=== PATIENT | female | born 1990 | race Caucasian/White ===

== ENCOUNTER 2019-10-04 17:08 | Emergency (ER) | payer SELFPAY ==
[2019-10-04 17:12] VITALS: BP 158/79; PULSE 81; RESP 12; TEMP 36.7; O2SAT 98
[2019-10-04 18:50] LABS: Bilirubin Negative (Negative); Blood Trace-intact (Negative); Clarity Clear (Clear); Glucose Negative (Negative); Ketones Negative (Negative); Leukocyte Esterase Negative (Negative); Nitrite Negative (Negative); Urobilinogen 0.2 EU/dL (Up TO 0.2)
[2019-10-04 19:03] LABS: Bacteria Negative HPF (Negative); Epithelial Cells Few HPF (Negative); Other Cells Negative (Negative); RBC Negative HPF (0-2); WBC Negative HPF (0-5)
[2019-10-04 19:04] LABS: C & S Indicated? No; Casts Negative LPF (Negative); Crystals Negative HPF (Negative); Mucus Negative (Negative)
[2019-10-04 19:27] LABS: Abs Immature Grans 0.05 k/cumm (0.0-0.09); Absolute Basophil Count 0.02 k/cumm (0.0-0.2); Absolute Eosinophil Count 0.28 k/cumm (0.0-0.7); Absolute Lymphocyte Count 2.65 k/cumm (1.2-3.4); Absolute Monocyte Count 0.73 k/cumm (0.11-0.7); Absolute Neutrophil Count 5.69 k/cumm (1.2-6.7); Basophils % 0.2; HCT 42.4 % (36.0-46.0); HGB 14.7 g/dL (12.0-15.5); Immature Grans % 0.5 %; Lymphocytes % 28.1; Mean Corp. HGB Concentration 34.7 g/dL (32.0-36.0); Mean Corpuscular Hemoglobin 30.4 pg (27.0-33.0); Mean Corpuscular Volume 87.8 fL (80-95); Mean Platelet Volume 9.1 fL (8.0-11.0); Monocytes % 7.7; Neutrophils % 60.5; Platelet Count 348 x1000/uL (130-400); RBC 4.83 m/cumm (4.00-5.20); RBC Distribution Width 12.2 % (11.7-14.6); White Blood Cell Count 9.42 k/cumm (4.4-10.8)
[2019-10-04 19:32] LABS: ALT 74 U/L (14-59); AST 40 U/L (15-37); Albumin 4.2 g/dL (3.4-5.0); Alkaline Phosphatase 77 U/L (46-116); BUN 11 mg/dL (7-18); Bilirubin, Total 0.4 mg/dL (0.2-1.0); Chloride 100 mmol/L (98-107); Glucose 91 mg/dL (74-106); Potassium 3.7 mmol/L (3.5-5.1); Sodium 137 mmol/L (136-145); Total Protein 7.5 g/dL (6.4-8.2)
[2019-10-04 20:38] LABS: Carboxyhemoglobin 1.5 %
[2019-10-04] MEDS: Meclizine 25 MG TAB PO (21:06)
[2019-10-04] MEDS: Normal Saline 1,000 ML 1000 ML IV (21:06)
[2019-10-04 21:40] VITALS: BP 122/76; PULSE 69; RESP 18; TEMP 36.6; O2SAT 98
--- NOTE | 2019-10-04 23:05 | W.ED.GENAD ---
Discharge Plan Disposition Patient Disposition: HOME Condition: Improving Discharge Details Chief Complaint: GenMedical Clinical Impression: Viral illness, Vertigo Primary Care Provider: Dorinda Kaminski ED Provider: Estee No Home Meds and New Rx's Prescriptions: New meclizine 25 mg tablet 25 mg PO TID PRN (Reason: dizziness) Qty: 10 RF: 0 ondansetron HCl [Zofran] 4 mg tablet 4 mg PO Q8H PRN (Reason: nausea and vomiting) Qty: 10 RF: 0 No Action fluoxetine [Prozac] 40 mg Capsule 40 mg PO DAILY RF: 0 lamotrigine 200 mg Tablet 200 mg PO DAILY RF: 0 buspirone 30 mg Tablet 30 mg PO DAILY RF: 0 Vyvanse 20 mg Capsule 20 mg PO DAILY RF: 0 Discharge Instructions Instructions: Vertigo (ED), Viral Syndrome (ED) Additional Instructions: Drink plenty of fluids. Use nausea medication as prescribed. Use meclizine as prescribed for dizziness. If not improving in the next 24 to 48 hours have prompt reevaluation as discussed for more advanced imaging studies as well as more in-depth medical evaluation. Rest activities as tolerated. Follow-up with PCP for recheck. Return for any alarming symptoms, worsening or concerns sooner as discussed Discharge Data Discharge Date/Time-TO BE ENTERED AT DEPARTURE: 10/04/19 23:20 Medical Decision Making This is a 29-year-old patient who is quite pleasant presenting to the emergency room for 4 days of nausea associated with dizziness. Patient reports onset of symptoms while traveling. Patient reports mild blurred vision feeling more comfortable with her glasses off. Patient reports dizziness is somewhat improved when not wearing her glasses. Patient reports recently traveling to [place], staying in a hotel for [employer]. Patient reports onset of symptoms after 2 days in the hotel. Friend with whom she shares the hotel room has similar symptoms which persist. She also did seek medical attention, was seen at [facility], diagnosed with vertigo with follow-up with PCP. Patient reports mild night sweats and chills but no measured fever. She has been able to eat and drink without difficulty. Denies abdominal pain, vomiting or bowel change. Denies urinary urgency or frequency. Patient denies any history of similar. Patient reports her dizziness as somewhat worse when changing position but no worse with position from a seated to a laying position or vice versa, somewhat worse when walking. Denies any worsening with position change of her head. Patient denies any visual field loss. Patient has benign neurologic exam at this time. IV fluids provided and labs obtained. EKG reveals sinus rhythm with a rate of 65. RSR in V1 which is nonspecific. No previous comparison. This was reviewed with my attending Dr. Wright. Patient does report dizziness improved after IV fluids. Hints exam with assistance of Dr. Llanos reveals no concern for central etiology of her symptoms. Labs reveal no acute abnormality. Carboxyhemoglobin normal. Patient's urinalysis not concerning for an acute urinary tract infection. Patient provided meclizine. Patient feels significantly improved at this time. She denies any persistent dizziness, has a normal gait at this time. Discussed more advanced imaging studies such as CT to rule out intracranial pathology and lumbar puncture. Patient declines more advanced imaging or lumbar puncture at this time. She would prefer discharge home with use of Zofran as well as meclizine and if not improving in the next 24 hours will return. Alarming symptoms and precautions discussed. Patient reports her understanding. 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 Patient reports her understanding. Encouraged prompt recheck with PCP. The patient was stable and requested discharge. Prior to discharge, my usual and customary return precautions were reviewed with the patient - this included follow-up instructions and reasons to return to the Emergency Department if conditions worsens, does not improve as expected, or other new concerns arise. HPI General Date/Time Provider Initiated Documentation: 10/04/19 17:14. 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 Patient reports 2 days after arriving in [place] she began to have onset of dizziness associated with nausea. Patient denies fevers but admits to mild chills. She does report night sweats for the last 2 nights. Patient reports symptoms persisted. She did return home yesterday. Patient denies associated chest pain, difficulty breathing with shortness of breath or wheezing. Patient reports dizziness is persistent. She does report mild blurred vision. Denies associated headache. Denies any injury or trauma while traveling. Patient denies any ear pain. Denies any nasal congestion or sore throat. Patient reports she has been able to eat and drink but has had decrease in appetite. Denies abdominal pain associated. Patient reports her friend with whom she traveled, shared a row in the plane with as well as shared hotel room with has very similar symptoms and has been evaluated at both [facility] as well as her PCP with diagnosis of vertigo. Patient denies any numbness, tingling or weakness of extremities. Patient describes her dizziness as spinning. Patient denies a positional component however she does report symptoms are worse when wearing glasses and when changing position for example from a seated to a sitting to laying. Denies worsening with movement of her head. No history of similar. Denies urinary symptoms or bowel changes. Denies use of drugs or alcohol while traveling. Related Data Home Medications Medication Instructions Recorded Confirmed buspirone 30 mg PO DAILY 10/04/19 10/04/19 fluoxetine [Prozac] 40 mg PO DAILY 10/04/19 10/04/19 lamotrigine 200 mg PO DAILY 10/04/19 10/04/19 lisdexamfetamine [Vyvanse] 20 mg PO DAILY 10/04/19 10/04/19 meclizine 25 mg PO TID PRN #10 tab 10/04/19 ondansetron HCl [Zofran] 4 mg PO Q8H PRN #10 tab 10/04/19 Previous Rx's Medication Instructions Recorded meclizine 25 mg PO TID PRN #10 tab 10/04/19 ondansetron HCl [Zofran] 4 mg PO Q8H PRN #10 tab 10/04/19 Allergies Allergy/AdvReac Type Severity Reaction Status Date / Time meloxicam Allergy Unverified 10/04/19 17:16 acetaminophen [From Percocet] AdvReac Unverified 10/04/19 17:16 oxycodone [From Percocet] AdvReac Unverified 10/04/19 17:16 General Stated Complaint: GenMedical YESENIA: 3 Review of Systems All systems reviewed & are unremarkable except as noted in HPI and below Constitutional Constitutional: Reports chills, Denies fatigue, Denies fever(s), Denies headache(s), Denies malaise and Denies weakness ENT Ears, Nose, Mouth, and Throat: Reports vertigo, Reports dizziness, Denies headache(s), Denies post nasal drip, Denies sinus pain, Denies sinus pressure and Denies sore throat Cardiovascular Cardiovascular: Denies chest pain, Denies chest pain at rest, Denies syncope, Denies rapid heart rate, Denies edema, Denies radiating jaw, neck or arm pain, Denies palpitations, Denies dyspnea and Denies dyspnea on exertion Respiratory Respiratory: Denies cough, Denies dyspnea and Denies dyspnea on exertion Gastrointestinal Gastrointestinal: Denies abdominal pain, Denies diarrhea, Reports nausea and Denies vomiting Genitourinary Genitourinary: Denies dysuria, Denies flank pain and Denies urinary urgency Musculoskeletal Musculoskeletal: Denies numbness and Denies tingling Neurologic Neurologic: Denies abnormal movements, Denies abnormal speech, Reports vertigo, Reports dizziness, Denies syncope, Denies headache(s), Denies lack of coordination, Denies numbness, Denies tingling, Denies paresthesias and Denies weakness Endocrine Endocrine: Denies fatigue and Denies palpitations [facility] Social History Smoking/Tobacco Use Status: Current every day Tobacco Type: cigarettes Alcohol Intake: current Alcohol Intake frequency: a few times a month Drug use: Never Substance use type: does not use Do you feel safe at home: Yes Do you feel safe in your relationship?: Yes Exam Narrative Exam Narrative: CONST: Healthy appearing patient, in no acute distress. Well hydrated. Alert and oriented. HENMT: Head nomocephalic, normal to inspection. Atraumatic. Hearing grossly normal. TMs appear normal bilaterally, no pharyngeal erythema. EYES: General normal appearance. Alignment normal. Eyelids normal. Conjunctiva normal. No nystagmus. NECK: Normal visual inspection. FROM. Trachea midline. No Midline tenderness. No cervical lymphadenopathy. CHEST: Normal insepection of the chest. RESP: Normal respiratory effort. Speaking full sentences. No cough. No audible wheezing. No retractions. CARDIO: No JVD. No murmurs, regular rate and rhythm MUSCULOSKELETAL: Normal Gait. FROM of all extremities. Strength intact in extremities upper and lower. Equal bilaterally. SKIN: Normal. Dry. No rashes. NEURO: Alert and awake. Speech clear. Alert and oriented x 3. Speech is clear. Cranial nerves intact as tested III - XI. Normal [id number] test. No pronator drift. Normal heel-jacobsen test. No Nystagmus. Gait normal. Strength intact in all extremities. Sensation intact in all extremities. PSYCH: Normal affect. Cooperative. Course Vital Signs Vital signs: Vital Signs Temperature 36.7 C 10/04/19 17:12 Pulse 81 10/04/19 17:12 Respiratory Rate 12 10/04/19 17:12 Blood Pressure 158/79 H 10/04/19 17:12 Pulse Oximetry 98 10/04/19 17:12 Temperature 36.6 C 10/04/19 21:40 Temperature Source Temporal Artery Scan 10/04/19 21:40 Pulse 69 10/04/19 21:40 Respiratory Rate 18 10/04/19 21:40 Respiratory Effort Non-Labored 10/04/19 19:36 Respiratory Depth Normal 10/04/19 19:36 Respiratory Pattern Normal 10/04/19 19:36 Blood Pressure 122/76 10/04/19 21:40 Blood Pressure Mean 91 10/04/19 21:40 Blood Pressure Position Sitting 10/04/19 17:12 Pulse Oximetry 98 10/04/19 21:40 Oxygen Delivery Method Room Air 10/04/19 21:40 Oxygen Flow Rate 0 10/04/19 21:40 Pain Level 2 10/04/19 17:12 Lab/Test Results Lab/Test Results: Laboratory Tests Range/Units 10/04/19 10/04/19 10/04/19 18:40 19:13 19:15 WBC (4.4-10.8) k/cumm 9.42 RBC (4.00-5.20) m/cumm 4.83 Hgb (12.0-15.5) g/dL 14.7 Hct (36.0-46.0) % 42.4 MCV (80-95) fL 87.8 MCH (27.0-33.0) pg 30.4 MCHC (32.0-36.0) g/dL 34.7 RDW (11.7-14.6) % 12.2 Plt Count (130-400) x1000/uL 348 MPV (8.0-11.0) fL 9.1 Immature Gran % % 0.5 Neutrophils % 60.5 Lymphocytes % 28.1 Monocytes % 7.7 Eosinophils % 3.0 Basophils % 0.2 Absolute Neutrophils (1.2-6.7) k/cumm 5.69 Absolute Lymphocytes (1.2-3.4) k/cumm 2.65 Absolute Monocytes (0.11-0.7) k/cumm 0.73 H Absolute Eosinophils (0.0-0.7) k/cumm 0.28 Absolute Basophils (0.0-0.2) k/cumm 0.02 Carboxyhemoglobin % % Sodium (136-145) mmol/L 137 Potassium (3.5-5.1) mmol/L 3.7 Chloride (98-107) mmol/L 100 Carbon Dioxide (21.0-32.0) mmol/L 28.0 Anion Gap (3-11) mmol/L 9.0 BUN (7-18) mg/dL 11 Creatinine (0.55-1.02) mg/dL 0.70 Estimated GFR/1.73 m2 (mL/min/1.73m2) >= 60.00 Glucose (74-106) mg/dL 91 Calcium (8.5-10.1) mg/dL 9.0 Total Bilirubin (0.2-1.0) mg/dL 0.4 AST (15-37) U/L 40 H ALT (14-59) U/L 74 H Alkaline Phosphatase (46-116) U/L 77 Total Protein (6.4-8.2) g/dL 7.5 Albumin (3.4-5.0) g/dL 4.2 Urine Color (Yellow) Yellow Urine Clarity (Clear) Clear Urine pH (5-8) 6.0 Ur Specific Welch (1.005-1.025) 1.010 Urine Protein (Negative) mg/dL Negative Urine Ketones (Negative) mg/dL Negative Urine Blood (Negative) Trace-intact H Urine Nitrite (Negative) Negative Urine Bilirubin (Negative) Negative Urine Urobilinogen (Up TO 0.2) EU/dL 0.2 Ur Leukocyte Esterase (Negative) Negative Urine RBC (0-2) HPF Negative Urine WBC (0-5) HPF Negative Ur Epithelial Cells (Negative) HPF Few Urine Crystals (Negative) HPF Negative Urine Bacteria (Negative) HPF Negative Urine Casts (Negative) LPF Negative Urine Mucus (Negative) Negative Urine Other (Negative) Negative Ur Culture Indicated? No Urine Glucose (Negative) mg/dL Negative Range/Units 10/04/19 20:30 WBC (4.4-10.8) k/cumm RBC (4.00-5.20) m/cumm Hgb (12.0-15.5) g/dL Hct (36.0-46.0) % MCV (80-95) fL MCH (27.0-33.0) pg MCHC (32.0-36.0) g/dL RDW (11.7-14.6) % Plt Count (130-400) x1000/uL MPV (8.0-11.0) fL Immature Gran % % Neutrophils % Lymphocytes % Monocytes % Eosinophils % Basophils % Absolute Neutrophils (1.2-6.7) k/cumm Absolute Lymphocytes (1.2-3.4) k/cumm Absolute Monocytes (0.11-0.7) k/cumm Absolute Eosinophils (0.0-0.7) k/cumm Absolute Basophils (0.0-0.2) k/cumm Carboxyhemoglobin % % 1.5 Sodium (136-145) mmol/L Potassium (3.5-5.1) mmol/L Chloride (98-107) mmol/L Carbon Dioxide (21.0-32.0) mmol/L Anion Gap (3-11) mmol/L BUN (7-18) mg/dL Creatinine (0.55-1.02) mg/dL Estimated GFR/1.73 m2 (mL/min/1.73m2) Glucose (74-106) mg/dL Calcium (8.5-10.1) mg/dL Total Bilirubin (0.2-1.0) mg/dL AST (15-37) U/L ALT (14-59) U/L Alkaline Phosphatase (46-116) U/L Total Protein (6.4-8.2) g/dL Albumin (3.4-5.0) g/dL Urine Color (Yellow) Urine Clarity (Clear) Urine pH (5-8) Ur Specific Welch (1.005-1.025) Urine Protein (Negative) mg/dL Urine Ketones (Negative) mg/dL Urine Blood (Negative) Urine Nitrite (Negative) Urine Bilirubin (Negative) Urine Urobilinogen (Up TO 0.2) EU/dL Ur Leukocyte Esterase (Negative) Urine RBC (0-2) HPF Urine WBC (0-5) HPF Ur Epithelial Cells (Negative) HPF Urine Crystals (Negative) HPF Urine Bacteria (Negative) HPF Urine Casts (Negative) LPF Urine Mucus (Negative) Urine Other (Negative) Ur Culture Indicated? Urine Glucose (Negative) mg/dL POC- Test(urine) Negative
[2019-10-04 23:18] VITALS: BP 127/89; PULSE 71; RESP 16; O2SAT 99
== END 2019-10-04 23:20 | disposition home or self-care (01) ==
PROVIDERS: Student in an Organized Health Care Education/Training Program; Emergency Provider Physician Assistant; PCP Student in an Organized Health Care Education/Training Program
DX: R11.0 Nausea (principal); R42 Dizziness and giddiness; R68.83 Chills (without fever); B34.9 Viral infection, unspecified; F17.210 Nicotine dependence, cigarettes, uncomplicated
CPT/HCPCS: 36415; 80053; 81025; 82375; 93005; 96360; 99285; 81003; 81015; 85025; 93010; 99284

== ENCOUNTER 2019-11-24 05:51 | Emergency (ER) | payer SELFPAY ==
[2019-11-24 05:55] VITALS: BP 121/78; PULSE 79; RESP 16; TEMP 36.5; O2SAT 100
--- NOTE | 2019-11-24 06:41 | ED.GENADUL_ITS ---
Discharge Plan Disposition Patient Disposition: HOME Condition: Stable Discharge Details Chief Complaint: GenMedical Clinical Impression: Migraine Primary Care Provider: Dorinda Kaminski ED Provider: Jt Orellana Home Meds and New Rx's Prescriptions: Continued fluoxetine [Prozac] 40 mg Capsule 40 mg PO DAILY RF: 0 lamotrigine 200 mg Tablet 200 mg PO DAILY RF: 0 propranolol 60 mg Capsule,Extended Release 24 Hr 60 mg PO QHS RF: 0 buspirone 15 mg Tablet 15 mg PO DAILY RF: 0 atomoxetine [Strattera] 10 mg Capsule 40 mg PO QAM RF: 0 Discharge Instructions Instructions: Migraine Headache (ED) Additional Instructions: follow up with your primary care provider at the [facility] and discuss seeing a neurologist if you have high fevers, severe worsening pain or persistent vomit return to the emergency department you can take 1000mg tylenol and 600mg ibuprofen every 6 hours for pain as needed Discharge Data Discharge Date/Time-TO BE ENTERED AT DEPARTURE: 11/24/19 09:21 Medical Decision Making <Evaristo Ambriz MD - Last Filed: 11/27/19 23:04> Not sure what to make of her symptoms which include headache (which she describes as pain behind her eyes either bilateral and pulsating or unilateral and searing), hot flashes, and tingling. She is being worked up at the [facility]. They have tried different medications and more recently they have started her on propranolol to see if that would help with the headaches. This headache apparently is a little more intense and definitely prolonged compared to typical. In some ways seems cluster-like in nature, however, there is no autonomic symptoms such as tearing or nasal discharge. Nevertheless it is worth trying some oxygen. Oxygen has not helped. In further discussion she has not had any imaging of her head done as part of this work-up. She has a normal neurologic exam. Seems unlikely but I think it is reasonable to obtain a noncontrast head CT to be sure there is no obvious abnormalities. We will go ahead and start an IV and give fluids, Toradol, Reglan, Benadryl to see if any improvement in her pain. <Jt Orellana MD - Last Filed: 11/24/19 09:08> Patient's head ct negative per dr. denney. She has no focal neuro deficits and CN II-XII are intact. She still has some pain in left head but has improved. Her symptoms seem most typical of either cluster headache or migraine. [facility] Will have her f/u with her pcp and also advised to see neurology and return precautions given Differential Diagnosis Differential Diagnosis: tension headache, cluster headache Imaging Data Radiologic Study: Attestation: I personally reviewed and interpreted this imaging study as follows: Imaging: CT Scan Radiologist's impression: per dr. denney no acute findings HPI <Evaristo Ambriz MD - Last Filed: 11/27/19 23:04> General Mode of arrival: ambulatory . Date/Time Provider Initiated Documentation: 11/24/19 06:39 . Limitations to Documentation: no limitations . Information obtained by: patient and RN notes reviewed . HPI Narrative: Patient presents to ED with stabbing pain behind and into the left eye which woke her up at 2 AM. She has been having pain similar to this on and off for a couple months. She also has migraine type headaches with pulsation and pain behind both eyes. This discomfort she is having now is only left-sided and not pulsating and more severe. She has had associated hot flashes and tingling on and off in her hands. She has some nausea and a little bit of dry heaves. [facility] to sort all this out. She came in this morning because the pain behind the left eye is most severe and did not respond to ibuprofen. She has no tearing or nasal discharge. She has a little bit of dizziness. She has no fever or URI symptoms. She has no other neurologic symptoms such as vision change, gait disturbance, weakness. The numbness and tingling is only ever in the hands usually the right. Related Data Home Medications Medication Instructions Recorded Confirmed fluoxetine [Prozac] 40 mg PO DAILY 10/04/19 11/24/19 lamotrigine 200 mg PO DAILY 10/04/19 11/24/19 atomoxetine [Strattera] 40 mg PO QAM 11/24/19 11/24/19 buspirone 15 mg PO DAILY 11/24/19 11/24/19 propranolol 60 mg PO QHS 11/24/19 11/24/19 Allergies Allergy/AdvReac Type Severity Reaction Status Date / Time meloxicam Allergy Unverified 11/24/19 08:03 acetaminophen [From Percocet] AdvReac Unverified 11/24/19 08:03 oxycodone [From Percocet] AdvReac Unverified 11/24/19 08:03 General Stated Complaint: GenMedical YESENIA: 3 Review of Systems <Evaristo Ambriz MD - Last Filed: 11/27/19 23:04> Narrative: As documented in HPI otherwise negative as below. Const: no fever, chills, weakness Resp: no cough, SOB, pleuritic pain CV: no CP, diaphoresis, edema, syncope GI: nausea; no abdominal pain, vomiting, diarrhea Neuro: headache, numbness in hands; no focal weakness, confusion PFSH <Evaristo Ambriz MD - Last Filed: 11/27/19 23:04> Medical History ADHD (Chronic) Bipolar disorder (Chronic) Surgical History S/P laparoscopy (Inactive) Social History Smoking/Tobacco Use Status: Former Tobacco Use Quit Date: 09/27/19 Alcohol Intake: current Alcohol Intake frequency: a few times a month Drug use: Occasionally Substance use type: marijuana Do you feel safe at home: Yes Do you feel safe in your relationship?: Yes Exam <Evaristo Ambriz MD - Last Filed: 11/27/19 23:04> Narrative Exam Narrative: Vitals: Afebrile. Normal vitals and room air pulse oximetry. Const: Obese female in NAD. HEENT: NC/AT. Normal facial exam. TMs clear bilaterally. Eyes: Normal conjunctiva and sclera. PERRL and EOMI. No nystagmus. Neck: Supple. Trachea midline. Lungs: Normal respiratory effort. Lungs are clear. Cor: RRR without murmur/gallop. Good radial pulses. Neuro: A+O x 3. Normal speech, mentation, gait. Cranial nerves II - XII grossly intact. No gross motor or sensory deficit. Normal FTN testing. Ext: No C/C/E. Skin: Warm and dry without rash. Course <Evaristo Ambriz MD - Last Filed: 11/27/19 23:04> Vital Signs Vital signs: Vital Signs Temperature 97.7 F 11/24/19 05:55 Pulse 79 11/24/19 05:55 Respiratory Rate 16 11/24/19 05:55 Blood Pressure 121/78 11/24/19 05:55 Pulse Oximetry 100 11/24/19 05:55 Temperature 97.7 F 11/24/19 05:55 Temperature Source Skin 11/24/19 05:55 Pulse 79 11/24/19 05:55 Respiratory Rate 16 11/24/19 05:55 Respiratory Effort 11/24/19 06:01 Blood Pressure 121/78 11/24/19 05:55 Pulse Oximetry 100 11/24/19 05:55 Oxygen Delivery Method Room Air 11/24/19 05:55 Oxygen Flow Rate 0 11/24/19 05:55 Pain Level 5 11/24/19 05:55 Sign Out <Evaristo Ambriz MD - Last Filed: 11/27/19 23:04> Sign Out Data: Sign Out Comment: pending head ct and re-evaluation Last updated by Evaristo Ambriz MD at 11/24/19 08:07
[2019-11-24] MEDS: diphenhydrAMINE 50 MG/ML VIAL 25 MG IVP (07:48)
[2019-11-24] MEDS: Ketorolac 30 MG/ML VIAL IVP (07:49)
[2019-11-24] MEDS: Metoclopramide 10 MG/2 ML VIAL IVP (07:49)
[2019-11-24] MEDS: Lactated Ringers 1,000 ML 1000 ML IV (07:59)
--- NOTE | 2019-11-24 08:21 | DI.CT_ITS ---
EXAM: CT HEAD WO CLINICAL HISTORY: worsening, recurrent headaches TECHNIQUE: Noncontrast COMPARISON: No exams were available for comparison FINDINGS: No intracranial hemorrhage, mass or infarct is seen. There is a normal variant of a cavum septum pe llucidum. There is no ventricular dilatation. No skull fracture or sinus opacification is seen. IMPRESSION: Negative head CT.
== END 2019-11-24 09:21 | disposition home or self-care (01) ==
PROVIDERS: Emergency Provider Emergency Medicine; PCP Student in an Organized Health Care Education/Training Program
DX: G43.909 Migraine, unspecified, not intractable, without status migrainosus (principal)
CPT/HCPCS: 96361; 96374; 96375; 99285; 70450; 99284; J1200; J1885; J2765

== ENCOUNTER 2022-03-27 04:57 | Observation (INO) | payer OTHER, SELFPAY ==
[2022-03-27] VITALS (23 sets, daily range): BP systolic 77–147; BP diastolic 50–90; PULSE 63–92; RESP 13–23; TEMP 36.1–37.8; O2SAT 94–100; BMI 35.9
--- NOTE | 2022-03-27 05:45 | DI.CT_ITS ---
Exam(s) CT ABDOMEN PELVIS WO EXAM: CT ABDOMEN PELVIS WO CLINICAL HISTORY: RUQ/RLQ abd pain, r/o cholecystitis/appendicitis. TECHNIQUE: Imaging Protocol: Axial computed tomography images with coronal and sagittal reformatted images were created and reviewed CONTRAST MATERIAL: Intravenous: none Oral: Yes. Oral contrast was administered for bowel opacification. COMPARISON: No exams were available for comparison FINDINGS: VISUALIZED LUNG BASES: No nodules nor pleural effusions evident. ABDOMEN: There is no ascites. LIVER: There are no obvious focal hepatic lesions evident of this noninfused study. GALLBLADDER/BILIARY: No obvious gallbladder pathology. CBD is not dilated. PANCREAS: No evidence of pancreatic mass nor dilatation of the pancreatic duct. SPLEEN: Spleen is not enlarged. No obvious intrasplenic lesions. ADRENALS: There are no significant adrenal masses. KIDNEYS:No cysts evident. No solid renal masses. No calculi nor hydronephrosis. . ABDOMINAL AORTA: Abdominal aorta is not enlarged. LYMPH NODES: There is no retroperitoneal nor paraaortic adenopathy. ABDOMINAL WALL: No evidence of significant anterior abdominal wall nor inguinal hernia. GI: There is no evidence of bowel obstruction, free air, nor abscess. PELVIS: LYMPH NODES: There is no intrapelvic nor inguinal adenopathy. GI: The retrocecal appendix is abnormally swollen and exhibits periappendiceal streaking, consistent with acute appendicitis. The appendix diameter is 12 millimeters. There is no appendicular lith. T here few slightly enlarged lymph nodes in this region, the largest measuring 1.2 cm.No evidence of si gmoid diverticulitis. URINARY BLADDER: No calculi nor obvious masses evident REPRODUCTIVE: IUD in the uterine cavity. There are no significant ovarian masses nor free fluid in t he cul-de-sac. OSSEOUS: No significant osseous lesions. Sacroiliac joints unremarkable. IMPRESSION: 1. Findings are consistent with acute appendicitis. The abnormal appearing appendix is retrocecal an d vertically orientated. The distal tip of the appendix is just below the right patent lobe. No monie dence of rupture at this time. No abscess.. 2. Remainder of the abdomen pelvis unremarkable. 3. IUD noted in the endometrial cavity. Report called by myself to the ER physician RADIATION DOSE DELIVERED: 949.41mGy.cm Total DLP DATA REPOSITORY: All CT scans at this facility are submitted to the National Radiology Data Registry (NRDR) Dose Index Registry (DIR) with the [employer] ([employer]). RADIATION OPTIMIZATION: All CT scans at this facility use at least one of these dose optimization te chniques: automated exposure control; mA and/or kV adjustment per patient size (includes targeted exa ms where dose is matched to clinical indication); or iterative reconstruction.
[2022-03-27] MEDS: Ketorolac 30 MG/ML VIAL IVP (05:56)
[2022-03-27] MEDS: Famotidine 20 MG/2 ML VIAL IVP (05:57)
--- NOTE | 2022-03-27 06:05 | W.ED.GENAD ---
Discharge Plan Disposition Patient Disposition: [facility] INPATIENT Condition: Stable Discharge Details Clinical Impression: Abdominal pain, Acute appendicitis Primary Care Provider: Dorinda Kaminski ED Provider: Matt Norris Medical Decision Making <Michelle Araya DO - Last Filed: 03/27/22 07:13> 0515 -- 31-year-old female with a history of laparoscopy presents with 3 weeks of constant diffuse burning abdominal pain with radiation to her right upper and right lower quadrant with nausea and black and green stools. Vitals within normal limits. Patient appears uncomfortable but nontoxic. Her abdomen is soft but diffusely tender and worse in the right upper and right lower quadrants. Differential diagnosis includes biliary colic, cholecystitis, appendicitis, colitis, GERD, PUD, gastritis, esophagitis. We will place an IV, bolus IV fluids, screening labs, urinalysis, CT abdomen and pelvis with oral contrast. Also obtain a gallbladder ultrasound. We will give a dose of IV Pepcid and Toradol and reassess. Discussed with radiology and patient likely needs gallbladder ultrasound n.p.o. so we will have to start oral contrast after abdominal ultrasound sound at 7 AM. This patient was evaluated during a time of global shortage of iodinated contrast media. Based on guidance from the [employer], best practices, and local institutional approaches, an alternative path for evaluating and managing the patient may have been employed in order to provide optimal care during this shortage. The current situation has been discussed with the patient. 0715 --patient reassessed and she feels better but still with some pain. We will give a dose of IV Tylenol labs reviewed. White blood cell count 11. Normal electrolytes. Normal lipase. Urinalysis shows trace blood. Discussed with analytical laboratory technician and patient would need to be n.p.o. for abdominal ultrasound so may need to wait till 2 PM if patient still would like to proceed with ultrasound. 0730 -- Case endorsed oncoming provider to follow-up on imaging and final disposition. Medical Records Medical records reviewed: Yes I reviewed the patient's medical records. <Matt Norris MD - Last Filed: 03/27/22 12:45> 0515 -- 31-year-old female with a history of laparoscopy presents with 3 weeks of constant diffuse burning abdominal pain with radiation to her right upper and right lower quadrant with nausea and black and green stools. Vitals within normal limits. Patient appears uncomfortable but nontoxic. Her abdomen is soft but diffusely tender and worse in the right upper and right lower quadrants. Differential diagnosis includes biliary colic, cholecystitis, appendicitis, colitis, GERD, PUD, gastritis, esophagitis. We will place an IV, bolus IV fluids, screening labs, urinalysis, CT abdomen and pelvis with oral contrast. Also obtain a gallbladder ultrasound. We will give a dose of IV Pepcid and Toradol and reassess. Discussed with radiology and patient likely needs gallbladder ultrasound n.p.o. so we will have to start oral contrast after abdominal ultrasound sound at 7 AM. This patient was evaluated during a time of global shortage of iodinated contrast media. Based on guidance from the [employer], best practices, and local institutional approaches, an alternative path for evaluating and managing the patient may have been employed in order to provide optimal care during this shortage. The current situation has been discussed with the patient. 0715 --patient reassessed and she feels better but still with some pain. We will give a dose of IV Tylenol labs reviewed. White blood cell count 11. Normal electrolytes. Normal lipase. Urinalysis shows trace blood. Discussed with analytical laboratory technician and patient would need to be n.p.o. for abdominal ultrasound so may need to wait till 2 PM if patient still would like to proceed with ultrasound. 0730 -- Case endorsed oncoming provider to follow-up on imaging and final disposition. Evidence of acute appendicitis on CT. Nonperitoneal nontoxic however having some increased pain. Patient endorses that she does not have an allergy to morphine, was given morphine and Zofran here with some relief. Zofran initiated. Kept NPO. Discussed case with general surgery. HPI <Michelle Araya DO - Last Filed: 03/27/22 07:13> General Mode of arrival: ambulatory. Date/Time Provider Initiated Documentation: 03/27/22 05:18. Limitations to Documentation: no limitations. Information obtained by: patient. HPI Narrative: Patient is a 31-year-old female with a history of 3 weeks of constant burning diffuse abdominal pain now with 1 week of what she describes as pulling right upper quadrant abdominal pain radiating to her right lower quadrant. She denies any aggravating or alleviating factors. She states the pain is currently 8/10. She has taken Pepto-Bismol for her pain without relief. She admits to nausea and occasionally black and green stools but denies any fever, vomiting, urinary symptoms or diarrhea. She states she has an IUD and is sexually active. She states she recently stopped taking all of her psychiatric medications in the last few weeks. She states she also has been taking omeprazole for GERD last year but has stopped this as well. She states she has a history of allergy to meloxicam but has taken Toradol and ibuprofen without adverse reaction. Related Data Allergies Allergy/AdvReac Type Severity Reaction Status Date / Time meloxicam Allergy Unverified 03/27/22 05:09 acetaminophen [From Percocet] AdvReac Unverified 03/27/22 05:09 oxycodone [From Percocet] AdvReac Unverified 03/27/22 05:09 General Stated Complaint: Abd Prob YESENIA: 3 Review of Systems <Michelle Araya DO - Last Filed: 03/27/22 07:13> All systems reviewed & are unremarkable except as noted in HPI and below Constitutional Constitutional: Denies chills, Denies excessive sweating, Denies fatigue, Denies fever(s), Denies weakness and Denies weight loss Eyes Eyes: Reports system reviewed and no additional complaints, except as documented and Denies blurry vision ENT Ears, Nose, Mouth, and Throat: Denies vertigo, Denies dizziness, Denies otalgia, Denies nasal congestion, Denies sore throat and Denies throat swelling Cardiovascular Cardiovascular: Denies chest pain, Denies syncope, Denies rapid heart rate and Denies dyspnea Respiratory Respiratory: Denies chest congestion, Denies cough, Denies pain on inspiration and Denies dyspnea Gastrointestinal Gastrointestinal: Reports abdominal pain, Reports melena, Denies diarrhea, Reports nausea and Denies vomiting Genitourinary Genitourinary: Denies hematuria, Denies dysuria and Denies flank pain Musculoskeletal Musculoskeletal: Denies back pain and Denies joint swelling Integumentary/Breasts Skin/Breast: Denies lesions and Denies rash Neurologic Neurologic: Denies behavioral changes, Denies confusion, Denies vertigo, Denies dizziness, Denies syncope, Denies localized weakness and Denies weakness Psychiatric Psychiatric: Denies behavioral changes, Denies confusion and Denies depression Endocrine Endocrine: Denies excessive sweating and Denies fatigue Hematologic/Lymphatic Hematologic/Lymphatic: Denies easy bruising and Denies lymphadenopathy Allergic/Immunologic Allergic/Immunologic: Denies throat swelling PFSH <Michelle Araya DO - Last Filed: 03/27/22 07:13> All Active Problems (Updated 03/27/22 @ 12:45 by Matt Norris MD) Acute appendicitis (Acute) Migraine (Chronic) Abdominal pain (Acute) Medical History (Updated 03/27/22 @ 12:45 by Matt Norris MD) ADHD Bipolar disorder Migraine Surgical History (Updated 03/27/22 @ 06:32 by Michelle Araya DO) H/O laparoscopy Social History Smoking/Tobacco Use Status: Former Tobacco Use Quit Date: 09/27/19 Smoking risk assessment performed?: Yes Alcohol Intake: current Alcohol Intake frequency: a few times a month Drug use: Occasionally Substance use type: marijuana Do you feel safe at home: Yes Do you feel safe in your relationship?: Yes Exam <Michelle Araya DO - Last Filed: 03/27/22 07:13> Const General: cooperative and healthy appearing Orientation: alert, awake and oriented x3 HENMT Head: normal to inspection Ears: hearing grossly normal bilaterally, external ears normal and TM's normal bilaterally General nose exam: external nose normal Face and sinus: normal facial exam Mouth: oral mucosae normal Teeth and gingiva: dentition normal Throat: posterior oropharynx normal Eyes General: appearance normal, both eyes and all related structures Eyelids: eyelids normal Pupils: PERRL EOM: EOM intact bilaterally Neck Neck: normal visual inspection Lymphatic: no lymphadenopathy noted Chest Chest: normal inspection of the chest Resp Effort & Inspection: normal respiratory effort and able to speak in complete sentences Auscultation: clear to auscultation bilaterally Cardio Rate: regular rate Rhythm: regular rhythm GI Inspection: normal to inspection and obesity Palpation: soft, not firm, no guarding, no hepatosplenomegaly, no masses and tender (diffuse, worse in RUQ/RLQ) Auscultation: normal bowel sounds Back/Spine/Pelvis Back: CVA tenderness (bilateral) Skin General skin exam: no rashes or lesions noted Neuro General: patient alert and patient awake Cognition: normal cognition Speech: speech normal Gait: normal gait Motor: muscle tone normal throughout Sensory Exam: no sensory deficits noted Extrem General: normal to inspection, full ROM and capillary refill normal Psych Appearance: grossly normal Mental Status: mental status grossly normal Speech and Movement: speech and movement normal Affect: normal affect Thought Process: normal Course <Michelle Araya DO - Last Filed: 03/27/22 07:13> Vital Signs Vital signs: Vital Signs Temperature 97.2 F L 03/27/22 05:02 Pulse 84 03/27/22 05:02 Respiratory Rate 16 03/27/22 05:02 Blood Pressure 147/90 H 03/27/22 05:02 Pulse Oximetry 96 03/27/22 05:02 Temperature 97.2 F L 03/27/22 05:02 Pulse 84 03/27/22 05:02 Respiratory Rate 16 03/27/22 05:02 Blood Pressure 147/90 H 03/27/22 05:02 Blood Pressure Position Sitting 03/27/22 05:02 Pulse Oximetry 96 03/27/22 05:02 Oxygen Delivery Method Room Air 03/27/22 05:02 Oxygen Flow Rate 0 03/27/22 05:02 Pain Level 8 03/27/22 05:02 Sign Out <Michelle Araya DO - Last Filed: 03/27/22 07:13> Sign Out Data: Sign Out Comment: Follow-up on ultrasound and CT results and final disposition. If imaging unremarkable, will likely need follow-up with general surgery or gastroenterology for upper and/or lower endoscopy. Last updated by Michelle Araya DO at 03/27/22 06:43 PAWSS <Michelle Araya DO - Last Filed: 03/27/22 07:13> Have you Been Recently Intoxicated or Drunk Within the Last 30 days?: No Have you Ever Experienced Previous Episodes of Alcohol Withdrawal?: No Have you ever Experienced Withdrawal Seizures?: No Have you ever Experienced Delirium Tremens(DT)s?: No Have you ever undergone Alcohol Rehabilitation Treatment (i.e, inpt ot outpatient treatment programs)?: No Have you ever Experienced Blackouts?: No Have you ever Combined Alcohol with other Downers within the last 90 days?: No Have you ever Combined Alcohol with any other Substance of Abuse during the last 90 days?: No Positive Blood Alcohol level on Presentation? [PCS.BAL]: No Evidence of Increased Autonomic Activity (i.e. HR>120, tremor, sweating, agitation, nausea)?: No Result: 0 <Matt Norris MD - Last Filed: 03/27/22 12:45> Result: 0
[2022-03-27 06:08] LABS: Abs Immature Grans 0.02 10^3/uL (0.0-0.06); Absolute Basophil Count 0.04 10^3/uL (0.0-0.2); Absolute Lymphocyte Count 2.67 10^3/uL (1.2-3.4); Absolute Monocyte Count 0.99 10^3/uL (0.1-0.8); Basophils % 0.4; HCT 44.1 % (36.0-46.0); HGB 14.7 g/dL (11.2-15.7); Immature Grans % 0.2; Lymphocytes % 24.2; MCH 29.8 pg (27.0-33.0); MCHC 33.3 % (32.0-36.0); MCV 90 fL (80-95); MPV 9.6 fL (8.0-11.0); Neutrophils % 66.2; Platelet Count 302 10^3/uL (130-400); RBC 4.93 10^6/uL (3.93-5.22); RDW-SD 39.4 fL; WBC 11.05 10^3/uL (4.4-10.8)
[2022-03-27 06:10] LABS: Absolute Neutrophil Count 7.32 10^3/uL (1.2-6.7)
[2022-03-27] MEDS: Normal Saline 1,000 ML 1000 ML IV (06:14)
[2022-03-27] MEDS: Normal Saline 100 ML (06:14)
[2022-03-27 06:22] LABS: ALT 29 U/L (14-59); AST 13 U/L (15-37); Albumin 3.9 g/dL (3.4-5.0); Alkaline Phosphatase 60 U/L (46-116); Anion Gap 7.5 mmol/L (3-11); BUN 8 mg/dL (7-18); Bilirubin, Total 0.2 mg/dL (0.2-1.0); CO2 26.5 mmol/L (21.0-32.0); CREATININE 0.7 mg/dL (0.55-1.02); Calcium 8.9 mg/dL (8.5-10.1); Chloride 104 mmol/L (98-107); Glucose 120 mg/dL (74-106); Lipase 81 U/L (73-393); Potassium 3.8 mmol/L (3.5-5.1); Sodium 138 mmol/L (136-145); Total Protein 7.3 g/dL (6.4-8.2)
[2022-03-27 06:33] LABS: Bilirubin Negative (Negative); Blood Trace-intact (Negative); Clarity Sl Cloudy (Clear); Glucose Negative (Negative); Ketones Negative (Negative); Leukocyte Esterase Negative (Negative); Nitrite Negative (Negative); Specific Gravity >= 1.030 (1.005-1.025); Urobilinogen 0.2 EU/dL (Up TO 0.2); pH 6.5 (5-8)
[2022-03-27 07:02] LABS: Bacteria Moderate HPF (Negative); C & S Indicated? No/Sq. Contamination; Casts Negative LPF (Negative); Crystals Negative HPF (Negative); Epithelial Cells Many HPF (Negative); Mucus Negative (Negative); WBC 0-2 HPF (0-5)
[2022-03-27] MEDS: ACETAMINOPHEN 1,000 MG/100 ML BTL 400 MG IVPB ×2 (07:27→17:28)
[2022-03-27] MEDS: PIPERACILLIN/TAZO 3.375 GM in Normal Saline 50 ML IVPB ×2 (09:23→15:22)
[2022-03-27 09:42] LABS: Source Nasal/Nares
[2022-03-27 10:33] LABS: COVID-19 PCR Negative (Negative)
[2022-03-27] MEDS: Ondansetron 4 MG/2 ML VIAL IVP (10:48)
[2022-03-27] MEDS: MORPHine 10 MG/ML VIAL 2 MG IVP (10:48)
[2022-03-27] MEDS: MORPHine 4 MG/ML SYR IVP (11:57)
--- NOTE | 2022-03-27 12:07 | HPE_ITS ---
Assessment and Plan Assessment and plan (1) Acute appendicitis: Status: Acute Assessment and plan: - Antibiotics repeat dose Surgery today- -further recommendations based on results of findings at the time of surgery. (2) ADHD: (3) Bipolar disorder: (4) Migraine: History of Present Illness Narrative: Patient is a 31-year-old female. She notes that she has been having abdominal pain for the past month. However on Wednesday she she ate breakfast and started having severe nausea eventually throughout. She was able to eat later on throughout the day but she diffuse nonspecific abdominal pain and felt like she had the flu. On Wednesday, she had minimal appetite and felt nauseous and did not feel good. She did not feel good throughout the week and was having na usea, diarrhea and minimal appetite. night she woke up with severe pain and came into the emergency room. She had a CT scan that did show a retrocecal appendix with no signs of perforati on or abscess. She has had no fever or chills. She is not currently on any of her psych meds. She had a previous laparoscopy. She does not have a hernia in the umbilicus. She does not tolerate narcotics well which cause nausea and vomiting. She is a former tobacco user. She has a daily THC user. She will be taken to the OR for laparoscopic appendectomy possible open. Risks of surgery include but not limited to: Bleeding, infection, pneumonia, blood clots, complications from anesthesia. Possible damage to: Bowel, blood vessels, ureters, infections or abscesses, hernias, and other on for told complications. Review of Systems All systems reviewed & are unremarkable except as noted in HPI and below PFSH All Active Problems Acute appendicitis (Acute) Migraine (Chronic) Abdominal pain (Acute) Medical History ADHD Bipolar disorder Migraine Surgical History H/O laparoscopy Social History Smoking/Tobacco Use Status: Former Tobacco Use Quit Date: 09/27/19 Smoking risk assessment performed?: Yes Alcohol Intake: current Alcohol Intake frequency: a few times a month Drug use: Occasionally Substance use type: marijuana Do you feel safe at home: Yes Do you feel safe in your relationship?: Yes Meds Allergies and Home Medications Allergies Allergy/AdvReac Type Severity Reaction Status Date / Time meloxicam Allergy Unverified 03/27/22 05:09 acetaminophen [From Percocet] AdvReac Unverified 03/27/22 05:09 oxycodone [From Percocet] AdvReac Unverified 03/27/22 05:09 Exam Narrative Exam Narrative: PHYSICAL EXAM GENERAL APPEARANCE: Alert, healthy appearance, oriented, in no acute distress SKIN: No rashes.? No breakdown HYDRATION: Well hydrated HEAD, EYES, EARS, NECK, THROAT: Head is normocephalic, pupils equal, round, reactive to light and accommodation, ocular movement intact, sclera clear and no jaundice. ?Dentition intact. No sore throat.? No jaw pain. No thrush NECK: Supple, Trachea midline. No JVD. LUNGS: normal respiration/nl chest excursion. ?Clear to auscultation B/l no R/R/W ?HEART: Regular rate and rhythm, EXTREMITY: No edema or cyanosis? no leg pain, redness, swelling.? No IV inf iltration ABDOMEN: non tender to palpation, no masses or distention, no hernias. Normal bowel sounds NEURO: no focal neuro deficits. multiple tattoos Results Labs Result diagrams: 03/27/22 06:00 03/27/22 06:00 Labs: Laboratory Results - last 24 hr 03/27/22 03/27/22 03/27/22 06:00 06:00 06:20 WBC 11.05 H RBC 4.93 Hgb 14.7 Hct 44.1 MCV 90 MCH 29.8 MCHC 33.3 RDW 12.0 Plt Count 302 MPV 9.6 Immature Gran % 0.2 Neutrophils % 66.2 Lymphocytes % 24.2 Monocytes % 9.0 Eosinophils % 0.0 Basophils % 0.4 Nucleated RBC % 0.0 Absolute Neutrophils 7.32 H Absolute Lymphocytes 2.67 Absolute Monocytes 0.99 H Absolute Eosinophils 0.00 Absolute Basophils 0.04 Sodium 138 Potassium 3.8 Chloride 104 Carbon Dioxide 26.5 Anion Gap 7.5 BUN 8 Creatinine 0.7 Estimated GFR/1.73 m2 >= 60.00 Glucose 120 H Calcium 8.9 Total Bilirubin 0.2 AST 13 L ALT 29 Alkaline Phosphatase 60 Total Protein 7.3 Albumin 3.9 Lipase 81 Urine Color Yellow Urine Clarity Sl Cloudy Urine pH 6.5 Ur Specific [place] >= 1.030 H Urine Protein Negative Urine Ketones Negative Urine Blood Trace-intact H Urine Nitrite Negative Urine Bilirubin Negative Urine Urobilinogen 0.2 Ur Leukocyte Esterase Negative Urine RBC 3-5 H Urine WBC 0-2 Ur Epithelial Cells Many Urine Crystals Negative Urine Bacteria Moderate Urine Casts Negative Urine Mucus Negative Ur Culture Indicated? No/Sq. Contamination Urine Glucose Negative COVID-19 Source SARS-CoV-2 (PCR) 03/27/22 09:35 WBC RBC Hgb Hct MCV MCH MCHC RDW Plt Count MPV Immature Gran % Neutrophils % Lymphocytes % Monocytes % Eosinophils % Basophils % Nucleated RBC % Absolute Neutrophils Absolute Lymphocytes Absolute Monocytes Absolute Eosinophils Absolute Basophils Sodium Potassium Chloride Carbon Dioxide Anion Gap BUN Creatinine Estimated GFR/1.73 m2 Glucose Calcium Total Bilirubin AST ALT Alkaline Phosphatase Total Protein Albumin Lipase Urine Color Urine Clarity Urine pH Ur Specific [place] Urine Protein Urine Ketones Urine Blood Urine Nitrite Urine Bilirubin Urine Urobilinogen Ur Leukocyte Esterase Urine RBC Urine WBC Ur Epithelial Cells Urine Crystals Urine Bacteria Urine Casts Urine Mucus Ur Culture Indicated? Urine Glucose COVID-19 Source Nasal/Nares SARS-CoV-2 (PCR) Negative Last Vital Signs Temp 36.2 C L 03/27/22 09:01 Pulse 70 03/27/22 09:01 Resp 16 03/27/22 09:01 BP 114/77 03/27/22 09:01 Pulse Ox 98 03/27/22 09:01 PAWSS Have you Been Recently Intoxicated or Drunk Within the Last 30 days?: No Have you Ever Experienced Previous Episodes of Alcohol Withdrawal?: No Have you ever Experienced Withdrawal Seizures?: No Have you ever Experienced Delirium Tremens(DT)s?: No Have you ever undergone Alcohol Rehabilitation Treatment (i.e, inpt ot outpa tient treatment programs)?: No Have you ever Experienced Blackouts?: No Have you ever Combined Alcohol with other Downers within the last 90 days?: No Have you ever Combined Alcohol with any other Substance of Abuse during the last 90 days?: No Positive Blood Alcohol level on Presentation? [PCS.BAL]: No Evidence of Increased Autonomic Activity (i.e. HR>120, tremor, sweating, ag itation, nausea)?: No Result: 0
--- NOTE | 2022-03-27 13:05 | ANES.PREOP_ITS ---
General Info Date of Service Date Performed: 03/27/22 Height: 5 ft 1 in Weight: 86.183 kg Body Mass Index (BMI): 35.9 Surgical Procedure: Operation Date: 03/27/22 14:10 Proposed Procedure Side Surgeon p Appendectomy Laparoscopic Wilma Mclean DO Meds Allergies and Home Medications Allergies Allergy/AdvReac Type Severity Reaction Status Date / Time meloxicam Allergy Unverified 03/27/22 05:09 acetaminophen [From Percocet] AdvReac Unverified 03/27/22 05:09 oxycodone [From Percocet] AdvReac Unverified 03/27/22 05:09 PFSH Active Problems Active Problems: Problem Status Onset Code Acute appendicitis K35.80 Migraine G43.909 Abdominal pain R10.9 Medical History Medical History (Updated 03/27/22 @ 12:45 by Matt Norris MD) ADHD Bipolar disorder Migraine Surgical History Surgical History (Updated 03/27/22 @ 06:32 by Michelle Araya DO) H/O laparoscopy Tobacco Smoking/Tobacco Use Status: Former Tobacco Use Alcohol Alcohol Intake: current Alcohol intake frequency: a few times a month Substance Use Substance use: Occasionally Substance use type: marijuana Vital Signs and Lab Results Vital Signs Most Recent Vital Signs in EMR: Most Recent Vital Signs Temp Pulse Resp BP Pulse Ox 36.2 C L 70 16 114/77 98 03/27/22 09:01 03/27/22 09:01 03/27/22 09:01 03/27/22 09:01 03/27/22 09:01 Point of Care Results Point of Care Results: POC- Test(urine) Negative 03/27/22 09:19 Lab Results Result Diagrams: 03/27/22 06:00 03/27/22 06:00 Blood Type / Crossmatch: No Data to Display Complete Blood Count: White Blood Count 11.05 10^3/uL (4.4-10.8) H 03/27/22 06:00 Red Blood Count 4.93 10^6/uL (3.93-5.22) 03/27/22 06:00 Hemoglobin 14.7 g/dL (11.2-15.7) 03/27/22 06:00 Hematocrit 44.1 % (36.0-46.0) 03/27/22 06:00 Platelet Count 302 10^3/uL (130-400) 03/27/22 06:00 Complete Metabolic Panel: Sodium Level 138 mmol/L (136-145) 03/27/22 06:00 Potassium Level 3.8 mmol/L (3.5-5.1) 03/27/22 06:00 Chloride Level 104 mmol/L (98-107) 03/27/22 06:00 Carbon Dioxide Level 26.5 mmol/L (21.0-32.0) 03/27/22 06:00 Blood Urea Nitrogen 8 mg/dL (7-18) 03/27/22 06:00 Creatinine 0.7 mg/dL (0.55-1.02) 03/27/22 06:00 Estimated GFR/1.73 m2 >= 60.00 (mL/min/1.73m2) 03/27/22 06:00 Calcium Level 8.9 mg/dL (8.5-10.1) 03/27/22 06:00 Albumin 3.9 g/dL (3.4-5.0) 03/27/22 06:00 Glucose Level 120 mg/dL (74-106) H 03/27/22 06:00 Liver Function Panel: Alanine Aminotransferase (ALT/SGPT) 29 U/L (14-59) 03/27/22 06: 00 Aspartate Amino Transf (AST/SGOT) 13 U/L (15-37) L 03/27/22 06: 00 Coagulation Panel: No Data to Display Cardiac Panel: No Data to Display Arterial Blood Gas: No Data to Display Venous Blood Gas: No Data to Display Pancreas Panel: Lipase 81 U/L (73-393) 03/27/22 06:00 Thyroid Panel: No Data to Display Infectious Disease: Coronavirus (COVID-19)(PCR) Negative (Negative) 03/27/22 09:35 Coronavirus 2019 Source Nasal/Nares 03/27/22 09:35 Blood Cultures: No Data to Display Toxicology Panel: No Data to Display Panel: No Data to Display Anesthesia Assessment and Plan Anesthesia History Personal History: No History of Anesthesia Complications Family History: No Family History of Anesthesia Complications Exercise Tolerance Exercise Tolerance: Metabolic Equivalents>4 Pertinent Negatives Pertinent Negatives: No Symptoms of GERD, No Major Cardiovascular Symptoms or Complaints and No Major Pulmonary Symptoms or Complaints Cardiac & Pulmonary Exam Cardiac Exam: Normal S1/S2 Heart Sounds Pulmonary Exam: Clear Bilateral Breath Sounds Implantable Cardiac Device Does patient have a Pacemaker or an ICD?: No Airway Exam Known Difficult Airway: No Mallampati Class: 2 Mouth Opening: Normal (> 3cm) Thyromental Distance: Greater than 3 cm Neck Range of Motion: Full ROM Neck Circumference: Normal Teeth Condition: Normal Dentition ASA Classification ASA Score: ASA 2 Emergency Case?: Yes NPO Status NPO Status: Full Stomach Status Status: Not Relevant due to Medical History Anesthesia Plan Resuscitation Status: Full Code Anesthesia Technique: General Anesthesia Airway Planned: Endotracheal Tube Monitors Used: Standard Monitors
[2022-03-27] MEDS: Lactated Ringers 1,000 ML 30 ML IV (15:11)
--- NOTE | 2022-03-27 16:22 | W.PM.OP ---
Date of service: 03/27/22 Time of Service: 16:22 Operative Note Operative Note DATE OF PROCEDURE: 03/27/22 PRE-OP DIAGNOSIS: acute appendicitis POST-OP DIAGNOSIS: same PROCEDURE: Laparoscopic appendectomy SURGEON: Wilma Reynoso MAJOR [employer]TS OFFICER: Wilma Eckert ANESTHESIA TYPE: Local By Surgeon and General LMA/ETT Refer to Anesthesia Record ESTIMATED BLOOD LOSS: 10 PATHOLOGY: other COMPLICATIONS: None Patient was transported to: PACU Patient's condition: stable Procedure Description: INDICATIONS: The patient has signs and symptoms compatible with acute appendicitis and is brought to the OR for laparoscopic appendectomy, possible open procedure. Informed consent is obtained for the procedural (explained in simple layman's terms that the pt and/or family could understand) explaining risks vs benefits and alternatives to the procedure and consequences if we do not do the procedure. Risks include but are not limited to:bleeding,infections, pneumonia, blood clots/DVT/PE, anesthesia(aspiration, damage to teeth/airway/NC/CVA//prolonged mechanical ventilation/PTX/IV infections), damage to bowel, bladder,blood vessels, ureters. Damage to solid organs requiring removal. Infertility. Leakage from anastomosis requiring colostomy. Wound infections requirng further surgery. Scarring and disfigurement. Subsequent bowel obstructions from scar tissue. Possible open procedure if minimaly invsive procedure is being attempted. Abscess and stump appendicitis as well as others. DESCRIPTION OF PROCEDURE: The patient was brought to the operating room suite and placed in supine position. Anesthesia was administered per the Department of Anesthesia. A Pineda catheter and OG tube are placed. The patient was prepped and draped in the usual sterile fashion using ChloraPrep scrub solution. Pause for the cause was done. 30 mL of 1% buffered was used for local anesthetization. A stab incision was made in the umbilicus and the Veress was inserted. Drop test was positive and insufflation was begun. When 15 mm of pressure was noted on the monitor, the Veress was removed, a #5 port inserted. Camera inserted through the port shows no damage to underlying structures. Bowel, liver and stomach that are visualized are normal in appearance. Pelvic organs are not visualized. The appendix is inflamed, erythematous,enlarged, & distened, but does not appear to have been ruptured. There is no purulent drainage in the pelvis. It is not adhered to any adjacent structures. A 12 mm port was then placed in the suprapubic position under direct visualization following creation of a local field block as well as a second 5 mm port in the LLQ. The appendix is elevated and a rent dissected into the mesentery. The base of the appendix is healthy and will hold royer. A Endo-YANICK stapler is placed across the base of the appendix and fired and 2nd stapler placed across the mesentery and fired. The appendix is placed in a bag and brought out. There is no bleeding or enteric leakage from the staple lines. The pt does not require a drain. The abdomen was copiously irrigated with a liter of saline. All saline is evacuated. The scope and ports are removed. Pneumoperitoneum is evacuated. The fascia under the 12 mm port is closed with 0 Vicryl. There was no bleeding from the port sites as when they removed and the pneumoperitoneum evacuated. The wounds were copiously irrigated and closed in 2 layers with 4-0 Monocryl.? Skin glue is used.? Sterile dressings are applied. The patient tolerated the procedure without complication, transferred to the recovery room in stable condition. Family was apprised of patient condition. The patient can be discharged home later today. WILMA REYNOSO, DO
--- NOTE | 2022-03-27 17:13 | W.ANESPOSTOP ---
Postoperative Evaluation Date, Time and Location Date Performed: 03/27/22 Time Performed: 16:54 Patient Location: PACU Vital Signs Most Recent Imported Vital Signs: Most Recent Vital Signs Temp Pulse Resp BP Pulse Ox 36.6 C 69 22 115/60 97 03/27/22 16:50 03/27/22 16:50 03/27/22 16:50 03/27/22 16:50 03/27/22 16:50 Pain Score Most Recent Pain Score: Most Recent Pain Score Pain Level 4 03/27/22 16:50 Assessment Mental Status: Awake (Alert & Oriented to Patient Baseline) Airway and Respiratory Function: Patent airway with normal (patient baseline) respiratory exam Cardiovascular Function: Hemodynamically Stable Hydration Status: Adequately Hydrated Nausea & Vomiting: No Nausea or Vomiting Pain: Pain is tolerable per patient Peripheral Nerve Block: Patient did not receive a nerve block
--- NOTE | 2022-03-27 17:21 | W.PM.DS.N ---
DS: Diagnosis Discharge Diagnosis (1) Acute appendicitis: Status: Acute (2) ADHD: (3) Bipolar disorder: (4) Migraine: Discharge Plan Disposition Patient Disposition: HOME Condition: Stable Discharge Details Reason For Visit: appendectomy Admit Date/Time: 03/27/22 17:16 Admit Provider: Wilma Mclean Attending Provider: Wilma Mclean Primary Care Provider: Dorinda Kaminski [facility] Course Hospital Course: Patient came to the ED with ongoing symptoms of acute appendicitis. She underwent uneventful laparoscopic appendectomy. She will go home on usual DC protocol and follow-up in surgery clinic in 1 to 2 weeks Discharge Instructions Additional Instructions: Keep an ice bag on the incision. 20 minutes on and 20 minutes off. Ice keeps the swelling down and swelling causes pain. Make sure you wrap the ice pack in a towel and don't apply directly to the skin. -No driving x 72 hrs or of you are taking pain medications. -You do not have any royer or sutures that need to be removed. -Do Not remove any skin glue that covers your incisions. Do not put any ointments on your incisions. -Follow-up with Dr. Mclean in 1-2 weeks. My office will call on Wednesday to schedule an appointment. [phone]. -Regular diet as tolerated -no straining to move bowels. I recommend taking a dose of milk of magnesia or MiraLAX Wednesday morning. Anesthesia does make you very constipated -pain meds are very constipating: if you do not move your bowels daily take a dose of OTC milk of magnesia -It is ok to shower. No bathe, soaking, swimming or hot tubs -Keep wound clean and dry. Wash incision with soap and water daily. Pat dry, don't rub. - You may find that your appetite is smaller. Eat 3-6 small meals throughout the day. It is important to drink lots of water after surgery, 6-10 glasses a day. -If you were given an incentive spirometry (breathing agricultural real estate agent?), continue to do this 10x/hour while awake. -We do want you up walking, at least 5-6 times per day. This is very important to prevent pneumonia and blood clots. You can climb stairs, take them slowly. -No lifting over 5 pounds. This is very important to avoid developing a hernia in your incision. -You may find that you are very tired after surgery- this is normal. -please do not smoke for a minimum of 72 hours after surgery. Activity:: No lifting over 5 pounds Equipment/Supplies:: No Equipment Needed Diet:: As Tolerated DS: Summary Time Spent with Patient providing and/or coordinating discharge services: Less than 30 minutes Status at Discharge Functional status at discharge: independent ambulation Overall status at discharge: patient is progressing back to baseline Mental Status: mental status grossly normal Speech and Movement: speech and movement normal Mood: congruent mood Affect: normal affect Exam Psych Mental Status: mental status grossly normal Speech and Movement: speech and movement normal Mood: congruent mood Affect: normal affect DS: Data Vitals/I&O Vitals and I&O: Vital Signs Temperature 36.6 C 03/27/22 16:50 Temperature Source Temporal Artery Scan 03/27/22 12:30 Pulse 69 03/27/22 16:50 Respiratory Rate 22 03/27/22 16:50 Blood Pressure 115/60 03/27/22 16:50 Blood Pressure Position Sitting 03/27/22 05:02 Pulse Oximetry 97 03/27/22 16:50 Oxygen Delivery Method Room Air 03/27/22 16:50 Oxygen Flow Rate 0 03/27/22 16:50 Pain Level 4 03/27/22 16:50 Intake & Output 03/26/22 03/27/22 03/27/22 23:59 11:59 23:59 Intake Total 1150 / 1900 750 / 1900 Output Total 50 / 50 Balance 1150 / 1850 700 / 1850 Weight 86.183 kg 86.183 kg Intake: IV 1150 / 1800 650 / 1800 Oral 100 / 100 Output: Urine 50 / 50 Other: Urine Color Yellow Urine Appearance Clear Emesis Description None Data Completed and Pending Labs on day of discharge: Labs from last 24 hours 03/27/22 03/27/22 03/27/22 09:35 06:20 06:00 WBC 11.05 H RBC 4.93 Hgb 14.7 Hct 44.1 MCV 90 MCH 29.8 MCHC 33.3 RDW 12.0 Plt Count 302 MPV 9.6 Immature Gran % 0.2 Neutrophils % 66.2 Lymphocytes % 24.2 Monocytes % 9.0 Eosinophils % 0.0 Basophils % 0.4 Nucleated RBC % 0.0 Absolute Neutrophils 7.32 H Absolute Lymphocytes 2.67 Absolute Monocytes 0.99 H Absolute Eosinophils 0.00 Absolute Basophils 0.04 Sodium Potassium Chloride Carbon Dioxide Anion Gap BUN Creatinine Estimated GFR/1.73 m2 Glucose Calcium Total Bilirubin AST ALT Alkaline Phosphatase Total Protein Albumin Lipase Urine Color Yellow Urine Clarity Sl Cloudy Urine pH 6.5 Ur Specific [place] >= 1.030 H Urine Protein Negative Urine Ketones Negative Urine Blood Trace-intact H Urine Nitrite Negative Urine Bilirubin Negative Urine Urobilinogen 0.2 Ur Leukocyte Esterase Negative Urine RBC 3-5 H Urine WBC 0-2 Ur Epithelial Cells Many Urine Crystals Negative Urine Bacteria Moderate Urine Casts Negative Urine Mucus Negative Ur Culture Indicated? No/Sq. Contamination Urine Glucose Negative COVID-19 Source Nasal/Nares SARS-CoV-2 (PCR) Negative 03/27/22 06:00 WBC RBC Hgb Hct MCV MCH MCHC RDW Plt Count MPV Immature Gran % Neutrophils % Lymphocytes % Monocytes % Eosinophils % Basophils % Nucleated RBC % Absolute Neutrophils Absolute Lymphocytes Absolute Monocytes Absolute Eosinophils Absolute Basophils Sodium 138 Potassium 3.8 Chloride 104 Carbon Dioxide 26.5 Anion Gap 7.5 BUN 8 Creatinine 0.7 Estimated GFR/1.73 m2 >= 60.00 Glucose 120 H Calcium 8.9 Total Bilirubin 0.2 AST 13 L ALT 29 Alkaline Phosphatase 60 Total Protein 7.3 Albumin 3.9 Lipase 81 Urine Color Urine Clarity Urine pH Ur Specific [place] Urine Protein Urine Ketones Urine Blood Urine Nitrite Urine Bilirubin Urine Urobilinogen Ur Leukocyte Esterase Urine RBC Urine WBC Ur Epithelial Cells Urine Crystals Urine Bacteria Urine Casts Urine Mucus Ur Culture Indicated? Urine Glucose COVID-19 Source SARS-CoV-2 (PCR) PFSH All Active Problems Acute appendicitis (Acute) Migraine (Chronic) Abdominal pain (Acute) Medical History ADHD Bipolar disorder Migraine Surgical History H/O laparoscopy Social History Smoking/Tobacco Use Status: Former Tobacco Use Quit Date: 09/27/19 Smoking risk assessment performed?: Yes Alcohol Intake: current Alcohol Intake frequency: a few times a month Drug use: Occasionally Substance use type: marijuana Do you feel safe at home: Yes Do you feel safe in your relationship?: Yes
--- NOTE | 2022-03-27 17:29 | W.PM.DS.N ---
DS: Diagnosis Discharge Diagnosis (1) Acute appendicitis: Status: Acute (2) ADHD: (3) Bipolar disorder: (4) Migraine: Discharge Plan Disposition Patient Disposition: HOME Condition: Stable Discharge Details Reason For Visit: appendectomy Admit Date/Time: 03/27/22 17:16 Admit Provider: Wilma Mclean Attending Provider: Wilma Mclean Primary Care Provider: Dorinda Kaminski [facility] Course Hospital Course: Patient came to the ED with ongoing symptoms of acute appendicitis. She underwent uneventful laparoscopic appendectomy. She will go home on usual DC protocol and follow-up in surgery clinic in 1 to 2 weeks Home Meds and New Rx's Prescriptions: New ibuprofen 600 mg tablet 600 mg PO Q6H PRNQty: 90 2RF tramadol [Ultram] 50 mg tablet 50 mg PO Q4H PRN (Reason: pain (scale score 7-10)) Qty: 10 0RF Rx Instructions: watch for nausea and constipation Discharge Instructions Additional Instructions: Keep an ice bag on the incision. 20 minutes on and 20 minutes off. Ice keeps the swelling down and swelling causes pain. Make sure you wrap the ice pack in a towel and don't apply directly to the skin. -No driving x 72 hrs or of you are taking pain medications. -You do not have any royer or sutures that need to be removed. -Do Not remove any skin glue that covers your incisions. Do not put any ointments on your incisions. -Follow-up with Dr. Mclean in 1-2 weeks. My office will call on Wednesday to schedule an appointment. [phone]. -Regular diet as tolerated -no straining to move bowels. I recommend taking a dose of milk of magnesia or MiraLAX Wednesday. Anesthesia does make you very constipated -pain meds are very constipating: if you do not move your bowels daily take a dose of OTC milk of magnesia -It is ok to shower. No bathe, soaking, swimming or hot tubs -Keep wound clean and dry. Wash incision with soap and water daily. Pat dry, don't rub. - You may find that your appetite is smaller. Eat 3-6 small meals throughout the day. It is important to drink lots of water after surgery, 6-10 glasses a day. -If you were given an incentive spirometry (breathing testboard operator?), continue to do this 10x/hour while awake. -We do want you up walking, at least 5-6 times per day. This is very important to prevent pneumonia and blood clots. You can climb stairs, take them slowly. -No lifting over 5 pounds. This is very important to avoid developing a hernia in your incision. -You may find that you are very tired after surgery- this is normal. -please do not smoke for a minimum of 72 hours after surgery. Pain control: ?For the first 72 hours after surgery, take you pain meds continuously and not just when you have pain.?? Alternate Tylenol 1000mg by mouth every 8 hours, and Ibuprofen 600mg every 6 hours.? Make sure you take ibuprofen with food and not on an empty stomach.? ??Use the tramadol for breakthrough pain- pain that is greater than a 7. ?- Use ICE! Ice really helps to keep the swelling down, and swelling causes pain. ??Twenty minutes on, and then off, continuously for the first 72hours.? After the first 72hrs, you can just use the Tylenol & ibuprofen , and ice, ?when you have pain.?? If you are taking narcotic pain medication, follow the instructions on the label and do not drive. Pain medications can make you very constipated. Make sure you are moving your bowels daily. If not, take Miralax, milk of magnesia or magnesium citrate.? - Anesthesia makes you very constipated.? Take a dose of milk of magnesia the morning after surgery. ? Use an ice bag for the first 72 hours. This helps to decrease swelling, which causes pain. It is normal to be more sore/painful and swollen towards the end of the day and first thing in the morning. Activity:: No lifting over 5 pounds Equipment/Supplies:: No Equipment Needed Diet:: As Tolerated DS: Summary Time Spent with Patient providing and/or coordinating discharge services: Less than 30 minutes Status at Discharge Functional status at discharge: independent ambulation Overall status at discharge: patient is progressing back to baseline Mental Status: mental status grossly normal Speech and Movement: speech and movement normal Mood: congruent mood Affect: normal affect Exam Psych Mental Status: mental status grossly normal Speech and Movement: speech and movement normal Mood: congruent mood Affect: normal affect DS: Data Vitals/I&O Vitals and I&O: Vital Signs Temperature 37 C 03/27/22 17:15 Temperature Source Tympanic 03/27/22 17:15 Pulse 72 03/27/22 17:15 Respiratory Rate 16 03/27/22 17:15 Blood Pressure 113/72 03/27/22 17:15 Blood Pressure Position Sitting 03/27/22 05:02 Pulse Oximetry 95 03/27/22 17:15 Oxygen Delivery Method Room Air 03/27/22 17:15 Oxygen Flow Rate 0 03/27/22 17:15 Pain Level 6 03/27/22 17:15 Intake & Output 03/26/22 03/27/22 03/27/22 23:59 11:59 23:59 Intake Total 1150 / 1900 750 / 1900 Output Total 50 / 50 Balance 1150 / 1850 700 / 1850 Weight 86.183 kg 86.183 kg Intake: IV 1150 / 1800 650 / 1800 Oral 100 / 100 Output: Urine 50 / 50 Other: Urine Color Yellow Urine Appearance Clear Emesis Description None Data Completed and Pending Labs on day of discharge: Labs from last 24 hours 03/27/22 03/27/22 03/27/22 09:35 06:20 06:00 WBC 11.05 H RBC 4.93 Hgb 14.7 Hct 44.1 MCV 90 MCH 29.8 MCHC 33.3 RDW 12.0 Plt Count 302 MPV 9.6 Immature Gran % 0.2 Neutrophils % 66.2 Lymphocytes % 24.2 Monocytes % 9.0 Eosinophils % 0.0 Basophils % 0.4 Nucleated RBC % 0.0 Absolute Neutrophils 7.32 H Absolute Lymphocytes 2.67 Absolute Monocytes 0.99 H Absolute Eosinophils 0.00 Absolute Basophils 0.04 Sodium Potassium Chloride Carbon Dioxide Anion Gap BUN Creatinine Estimated GFR/1.73 m2 Glucose Calcium Total Bilirubin AST ALT Alkaline Phosphatase Total Protein Albumin Lipase Urine Color Yellow Urine Clarity Sl Cloudy Urine pH 6.5 Ur Specific [place] >= 1.030 H Urine Protein Negative Urine Ketones Negative Urine Blood Trace-intact H Urine Nitrite Negative Urine Bilirubin Negative Urine Urobilinogen 0.2 Ur Leukocyte Esterase Negative Urine RBC 3-5 H Urine WBC 0-2 Ur Epithelial Cells Many Urine Crystals Negative Urine Bacteria Moderate Urine Casts Negative Urine Mucus Negative Ur Culture Indicated? No/Sq. Contamination Urine Glucose Negative COVID-19 Source Nasal/Nares SARS-CoV-2 (PCR) Negative 03/27/22 06:00 WBC RBC Hgb Hct MCV MCH MCHC RDW Plt Count MPV Immature Gran % Neutrophils % Lymphocytes % Monocytes % Eosinophils % Basophils % Nucleated RBC % Absolute Neutrophils Absolute Lymphocytes Absolute Monocytes Absolute Eosinophils Absolute Basophils Sodium 138 Potassium 3.8 Chloride 104 Carbon Dioxide 26.5 Anion Gap 7.5 BUN 8 Creatinine 0.7 Estimated GFR/1.73 m2 >= 60.00 Glucose 120 H Calcium 8.9 Total Bilirubin 0.2 AST 13 L ALT 29 Alkaline Phosphatase 60 Total Protein 7.3 Albumin 3.9 Lipase 81 Urine Color Urine Clarity Urine pH Ur Specific [place] Urine Protein Urine Ketones Urine Blood Urine Nitrite Urine Bilirubin Urine Urobilinogen Ur Leukocyte Esterase Urine RBC Urine WBC Ur Epithelial Cells Urine Crystals Urine Bacteria Urine Casts Urine Mucus Ur Culture Indicated? Urine Glucose COVID-19 Source SARS-CoV-2 (PCR) PFSH All Active Problems Acute appendicitis (Acute) Migraine (Chronic) Abdominal pain (Acute) Medical History ADHD Bipolar disorder Migraine Surgical History H/O laparoscopy Social History Smoking/Tobacco Use Status: Former Tobacco Use Quit Date: 09/27/19 Smoking risk assessment performed?: Yes Alcohol Intake: current Alcohol Intake frequency: a few times a month Drug use: Occasionally Substance use type: marijuana Do you feel safe at home: Yes Do you feel safe in your relationship?: Yes
[2022-03-27] MEDS: Normal Saline 500 ML 1000 ML IV (18:27)
[2022-03-27] MEDS: traMADol 50 MG TAB PO (20:29)
[2022-03-27] MEDS: DEXTROSE 5%-0.9% SALINE 1,000 ML 125 ML IV (20:34)
--- NOTE | 2022-03-27 21:29 | W.PM.PROGNOT ---
Date of Service Date of service: 03/27/22 Time of Service: 18:30 Assessment and Plan Assessment and plan (1) Acute appendicitis: Status: Acute Assessment and plan: Patient had a vasovagal reaction and hypotension postop. She had 600 cc of crystalloid in during surgery. She had less than 50 cc out in her Pineda during surgery. She had minimal blood loss during surgery. She had been in the ER since 4 AM. They gave her a liter of fluid but otherwise she did not have an IV going for the 12 hours she was in the ER. I think all of this stems from dehydration and some residual from anesthesia. We will hold her discharge until a.m. and continue with fluid resuscitation. Lungs are clear to auscultation Abdomen is soft and no bleeding from the incisions. There is no signs of any bleeding. Patient's blood pressure responded with a liter of fluid. Objective Last Vital Signs Temp 37.1 C 03/27/22 18:24 Pulse 86 03/27/22 18:48 Resp 16 03/27/22 19:12 BP 127/85 03/27/22 19:12 Pulse Ox 96 03/27/22 19:12 Laboratory Results - last 24 hr 03/27/22 03/27/22 03/27/22 06:00 06:00 06:20 WBC 11.05 H RBC 4.93 Hgb 14.7 Hct 44.1 MCV 90 MCH 29.8 MCHC 33.3 RDW 12.0 Plt Count 302 MPV 9.6 Immature Gran % 0.2 Neutrophils % 66.2 Lymphocytes % 24.2 Monocytes % 9.0 Eosinophils % 0.0 Basophils % 0.4 Nucleated RBC % 0.0 Absolute Neutrophils 7.32 H Absolute Lymphocytes 2.67 Absolute Monocytes 0.99 H Absolute Eosinophils 0.00 Absolute Basophils 0.04 Sodium 138 Potassium 3.8 Chloride 104 Carbon Dioxide 26.5 Anion Gap 7.5 BUN 8 Creatinine 0.7 Estimated GFR/1.73 m2 >= 60.00 Glucose 120 H Calcium 8.9 Total Bilirubin 0.2 AST 13 L ALT 29 Alkaline Phosphatase 60 Total Protein 7.3 Albumin 3.9 Lipase 81 Urine Color Yellow Urine Clarity Sl Cloudy Urine pH 6.5 Ur Specific [place] >= 1.030 H Urine Protein Negative Urine Ketones Negative Urine Blood Trace-intact H Urine Nitrite Negative Urine Bilirubin Negative Urine Urobilinogen 0.2 Ur Leukocyte Esterase Negative Urine RBC 3-5 H Urine WBC 0-2 Ur Epithelial Cells Many Urine Crystals Negative Urine Bacteria Moderate Urine Casts Negative Urine Mucus Negative Ur Culture Indicated? No/Sq. Contamination Urine Glucose Negative COVID-19 Source SARS-CoV-2 (PCR) 03/27/22 09:35 WBC RBC Hgb Hct MCV MCH MCHC RDW Plt Count MPV Immature Gran % Neutrophils % Lymphocytes % Monocytes % Eosinophils % Basophils % Nucleated RBC % Absolute Neutrophils Absolute Lymphocytes Absolute Monocytes Absolute Eosinophils Absolute Basophils Sodium Potassium Chloride Carbon Dioxide Anion Gap BUN Creatinine Estimated GFR/1.73 m2 Glucose Calcium Total Bilirubin AST ALT Alkaline Phosphatase Total Protein Albumin Lipase Urine Color Urine Clarity Urine pH Ur Specific [place] Urine Protein Urine Ketones Urine Blood Urine Nitrite Urine Bilirubin Urine Urobilinogen Ur Leukocyte Esterase Urine RBC Urine WBC Ur Epithelial Cells Urine Crystals Urine Bacteria Urine Casts Urine Mucus Ur Culture Indicated? Urine Glucose COVID-19 Source Nasal/Nares SARS-CoV-2 (PCR) Negative PAWSS Have you Been Recently Intoxicated or Drunk Within the Last 30 days?: No Have you Ever Experienced Previous Episodes of Alcohol Withdrawal?: No Have you ever Experienced Withdrawal Seizures?: No Have you ever Experienced Delirium Tremens(DT)s?: No Have you ever undergone Alcohol Rehabilitation Treatment (i.e, inpt ot outpatient treatment programs)?: No Have you ever Experienced Blackouts?: No Have you ever Combined Alcohol with other Downers within the last 90 days?: No Have you ever Combined Alcohol with any other Substance of Abuse during the last 90 days?: No Positive Blood Alcohol level on Presentation? [PCS.BAL]: No Evidence of Increased Autonomic Activity (i.e. HR>120, tremor, sweating, agitation, nausea)?: No Result: 0
[2022-03-27] MEDS: Ketorolac 15 MG/ML VIAL IVP (21:55)
--- NOTE | 2022-03-27 23:47 | NUR.NOTE ---
Patient to OR at 1352.Nursing Note:
[2022-03-27] MEDS: Acetaminophen 500 MG TAB 1000 MG PO (23:55)
[2022-03-28] MEDS: Ketorolac 15 MG/ML VIAL IVP (03:26)
[2022-03-28] MEDS: DEXTROSE 5%-0.9% SALINE 1,000 ML 125 ML IV (04:20)
[2022-03-28] MEDS: Acetaminophen 500 MG TAB 1000 MG PO ×2 (05:39→11:43)
[2022-03-28] MEDS: Enoxaparin 40 MG/0.4 ML SYR SC (05:39)
[2022-03-28 08:05] VITALS: BP 123/72; PULSE 90; RESP 16; TEMP 37.5; O2SAT 95
--- NOTE | 2022-03-28 09:14 | INITIAL_ITS ---
- If Service Date Differs Date of service: 03/28/22 Time of Service: 09:14 Care Management Initial Assess REASON FOR HOSPITALIZATION:: appendicitis PAST MEDICAL HISTORY/PAST SURGICAL HISTORY:: All Active Problems . Acute appendicitis (Acute). Migraine (Chronic). Abdominal pain (Acute). Medical History . ADHD. Bipolar disorder. Migraine. Surgical History . H/O laparoscopy PREVIOUS FUNCTIONAL STATUS/SOCIAL/FAMILY SUPPORTS:: Janet lives in a single family home in [place] with her Poli.She has no children and is independent at baseline. 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 CURRENT FUNCTIONAL STATUS:: Janet was sitting up in a chair fully dressed when CM met with her. She was waiting for the surgeon to make rounds and hopefully discharge her. She stated that her pain is well controlled (about a 2 or 3) and she feels well. ADVANCE DIRECTIVES:: none on file Has patient been provided with info about the portal/API?: Yes Did the patient sign up for the portal?: No CODE STATUS:: Full Code INSURANCE COVERAGE / FINANCIAL ISSUES:: [facility] CURRENT HOME/COMMUNITY SERVICES/EQUIPMENT:: none PRIMARY CARE PHYSICIAN:: Dorinda Kaminski POTENTIAL DISCHARGE NEEDS:: follow up with surgeon and PCP PATIENT/FAMILY EDUCATION NEEDS:: review of discharge instructions, limitations, activity, diet, folow up plan discuss Ask Me Three TRANSPORTATION:: via private vehicle with PLAN:: Janet will be discharged home with no new services. She will follow up with her community providers and tranport with her .
--- NOTE | 2022-03-28 11:46 | PDOC.CMDIS ---
- If Service Date Differs Date of service: 03/28/22 Time of Service: 11:47 LACE Index Scoring Tool - Questions: Length of Stay (in days): 1 Acuity (Admit via E.D.?): Yes E.D. Visits: 1 - Answers: Total Score: 5 Risk of Readmission: Low Risk Care Management Discharge Reason for Hospitalization: appendicitis Discharge Plan: Janet will be discharged home with no new services. She will follow up with her community providers and tranport with her . Patient/Family Education Needs: review of discharge instructions, limitations, activity, diet, folow up plan discuss Ask Me Three
--- NOTE | 2022-03-28 15:57 | APP_PTH ---
PATIENT: Janet Martinez LOC: U#:[id number] AGE/SX: 31/F ROOM: 214 RE03/27/[address]: Wilma Mclean : 1990 BED: A DIS: 03/28/2022 SPEC #: [id number] RECD: 03/31/22 09:13 STATUS: MATTIE REQ #: [id number] AMITA: 03/28/22 15:[address]: Wilma Mclean DEPT: Surgical Specimen RECD BY: Suzie Keller ENTERED: 03/31/22 09:18 SP TYPE: Appendix OTHR DR: Dorinda Kaminski Tissues: 1 - APPENDIX NOT INCIDENTAL Procedures: GROSS AND MICRO LEVEL 3 Comments: [id number]
== END 2022-03-28 12:46 | disposition home or self-care (01) ==
LOC: ER 12:45 → MS 17:21 → ER 17:34 → MS 23:47 → ER 04-01 13:11 → DSU 04-01 13:12 → MS 04-01 13:13
PROVIDERS: Physician Assistant; Admitting Provider Surgery; Emergency Provider Emergency Medicine; PCP Student in an Organized Health Care Education/Training Program; Visit Provider Surgery
PROC: 0DTJ4ZZ Resection of Appendix, Percutaneous Endoscopic Approach (ICD-10-PCS; CPT 44970; principal; 2022-03-27 14:00)
DX: K35.80 Unspecified acute appendicitis (principal); F31.9 Bipolar disorder, unspecified; G43.909 Migraine, unspecified, not intractable, without status migrainosus; F90.9 Attention-deficit hyperactivity disorder, unspecified type; Z87.891 Personal history of nicotine dependence; F12.90 Cannabis use, unspecified, uncomplicated; Z79.899 Other long term (current) drug therapy; Z20.822 Contact with and (suspected) exposure to COVID-19
CPT/HCPCS: 44970; 51702; 80053; 81025; 83690; 87635; 96361; 96365; 96372; 96374; 96375; 96376; 99285; J1650; 74176; 81003; 81015; 85025; 88304; G0378; J0131; J1100; J1885; J2270; J2405; J2543; J7042

== ENCOUNTER 2022-04-01 13:35 | Outpatient (REF) | payer OTHER, SELFPAY | END 2022-04-01 13:36 | disposition home or self-care (01) | LOC: LBN 13:35 | PROVIDERS: PCP Student in an Organized Health Care Education/Training Program; Visit Provider Surgery | DX: L02.211 Cutaneous abscess of abdominal wall | CPT/HCPCS: 87077; 87070; 87186; 87205 ==

== ENCOUNTER 2023-04-14 00:33 | Emergency (ER) | payer OTHER, SELFPAY ==
--- NOTE | 2023-04-14 00:30 | RT.EKG_ITS ---
APPROVED REPORT Exam: Resting ECG Reason for Exam: SOB Patient Location: E HR:66 bpm ECG Measurements Heart Rate 66 AXIS VA 183 P 54 QRSd 114 QRS 36 QT 377 T 29 QTc 396 Conclusion Sinus rhythm...normal P axis, V-rate 60- 99
[2023-04-14 00:36] VITALS: BP 116/77; PULSE 68; RESP 16; TEMP 36.7; O2SAT 97
--- NOTE | 2023-04-14 00:44 | NUR.NOTE ---
Verb ords received from MD Vanessa for cbc w/ diff and cmp.
--- NOTE | 2023-04-14 00:48 | ED.GENADUL_ITS ---
Discharge Plan Disposition Patient Disposition: Home Condition: Stable Discharge Details Clinical Impression: Headache Primary Care Provider: Dorinda Kaminski ED Provider: Evaristo Mendez [place] Meds and New Rx's Prescriptions: No Action Galzin 50 mg (zinc) capsule 50 mg PO DAILY multivitamin [Daily Multi-Vitamin] Tablet 1 tab PO DAILY MediHoney (honey) 80 % gel 1 applic topical DAILY Qty: 15 0RF Rx Instructions: apply thin coating to packing each day pack loosely to the base of the wound, you should be slowly using less and less packing each time ibuprofen 600 mg tablet 600 mg PO Q6H PRNQty: 90 2RF Discharge Instructions Instructions: General Headache (ED) HPI General Date/Time Provider Initiated Documentation: 04/14/23 00:43 . HPI Narrative: 32 year old female presents to the ED with c/o DANIELS today. She says that she woke this am with a hangover, has had a DANIELS all day. She went to bed around 9pm, and woke up with a worse DANIELS. She says that it has lessened some, but still feels bad. No hx trauma, no vomiting tonight, although says she did vomit first thing this am. Related Data Home Medications Medication Instructions Recorded Confirmed ibuprofen 600 mg tablet 600 mg PO Q6H PRN #90 tabs 03/27/22 04/14/23 honey 80 % topical gel (MediHoney 1 applic topical DAILY surgical 05/06/22 05/06/22 (honey)) wound #15 mL multivitamin (Daily Multi-Vitamin 1 tab PO DAILY 05/06/22 04/14/23 tablet) zinc acetate 50 mg (zinc) capsule 50 mg PO DAILY 05/06/22 04/14/23 (Galzin) Previous Rx's Medication Instructions Recorded ibuprofen 600 mg tablet 600 mg PO Q6H PRN #90 tabs 03/27/22 honey 80 % topical gel (MediHoney 1 applic topical DAILY surgical 05/06/22 (honey)) wound #15 mL Allergies Allergy/AdvReac Type Severity Reaction Status Date / Time silver Allergy Intermediate rash, Verified 04/14/23 00:54 stinging meloxicam Allergy Unverified 04/14/23 00:54 acetaminophen [From Percocet] AdvReac Unverified 04/14/23 00:54 oxycodone [From Percocet] AdvReac Unverified 04/14/23 00:54 General Stated Complaint: Headache YESENIA: 3 Review of Systems Narrative: CONST: no fever or chills HEENT: no sore throat +DANIELS SKIN: no rashes PULM: no sob, no cough CARD: no cp, no palpitations EXTR: no swelling NEURO: No focal weakness PFSH All Active Problems (Updated 04/14/23 @ 01:55 by Evaristo Mendez MD) Headache (Acute) Appendicitis (Acute) Surgical site infection (Acute) Acute appendicitis (Acute) Migraine (Chronic) Medical History ADHD Bipolar disorder Migraine Surgical History H/O laparoscopy Social History Smoking/Tobacco Use Status: Former Tobacco Use Quit Date: 09/27/19 Smoking risk assessment performed?: Yes Alcohol Intake: current Alcohol Intake frequency: a few times a month Alcohol type: other Drug use: Occasionally Substance use type: marijuana Housing: house Do you feel safe at home: Yes Do you feel safe in your relationship?: Yes Exam Narrative Exam Narrative: Const: well appearing, no acute distress HEENT: normocephalic, atraumatic; MMM Lungs: CTA, no wheezing or rales Heart: RRR Ext: well perfused Neuro: non-focal Skin: no rashes Course 32 yo female with c/o hangover this am and persistent DANIELS thoughout the day. Will check labs, IVF and meds, and re-eval. Reevaluation(s) Initial Evaluation: [id number] - pt feeling much better after ivf and meds. labs without acute findings, will dc home, fu with pcp as needed. Return for any worsening or concerning sx's. Vital Signs Vital signs: Vital Signs Temperature 36.7 C 04/14/23 00:36 Pulse 68 04/14/23 00:36 Respiratory Rate 16 04/14/23 00:36 Blood Pressure 116/77 04/14/23 00:36 Pulse Oximetry 97 04/14/23 00:36 Temperature 36.7 C 04/14/23 00:36 Pulse 68 04/14/23 00:36 Respiratory Rate 16 04/14/23 00:36 Respiratory Effort Normal, Non-Labored, Short of Breath 04/14/23 00:39 Blood Pressure 116/77 04/14/23 00:36 Pulse Oximetry 97 04/14/23 00:36 Oxygen Delivery Method Room Air 04/14/23 00:36 Oxygen Flow Rate 0 04/14/23 00:36 PAWSS Have you Been Recently Intoxicated or Drunk Within the Last 30 days?: Yes Have you ever Experienced Withdrawal Seizures?: No Have you ever Experienced Delirium Tremens(DT)s?: No Have you ever undergone Alcohol Rehabilitation Treatment (i.e, inpt ot outpatient treatment programs)?: No Have you ever Experienced Blackouts?: No Have you ever Combined Alcohol with any other Substance of Abuse during the last 90 days?: Yes Result: 3
[2023-04-14 00:50] LABS: Abs Immature Grans 0.03 10^3/uL (0.0-0.06); Absolute Basophil Count 0.04 10^3/uL (0.0-0.2); Absolute Eosinophil Count 0.25 10^3/uL (0.0-0.7); Absolute Lymphocyte Count 3.73 10^3/uL (1.2-3.4); Absolute Monocyte Count 0.82 10^3/uL (0.1-0.8); Absolute Neutrophil Count 4.61 10^3/uL (1.2-6.7); Basophils % 0.4; Eosinophils % 2.6; HGB 15.6 g/dL (11.2-15.7); Immature Grans % 0.3; Lymphocytes % 39.3; MCH 31.1 pg (27.0-33.0); MCHC 36.3 % (32.0-36.0); MCV 86 fL (80-95); MPV 9.3 fL (8.0-11.0); Monocytes % 8.6; Neutrophils % 48.8; Platelet Count 355 10^3/uL (130-400); RBC 5.02 10^6/uL (3.93-5.22); RDW 11.8 % (11.7-14.6); RDW-SD 36.7 fL; WBC 9.48 10^3/uL (4.4-10.8)
[2023-04-14] MEDS: Ketorolac 30 MG/ML VIAL IVP (00:59)
[2023-04-14] MEDS: Normal Saline 1,000 ML 1000 ML IV (01:01)
[2023-04-14] MEDS: Ondansetron 4 MG/2 ML VIAL IVP (01:01)
[2023-04-14] MEDS: diphenhydrAMINE 50 MG/ML VIAL 25 MG IVP (01:02)
[2023-04-14 01:04] LABS: ALT 42 U/L (14-59); AST 18 U/L (15-37); Albumin 3.9 g/dL (3.4-5.0); Alkaline Phosphatase 62 U/L (46-116); Anion Gap 13.3 mmol/L (3-11); BUN 12 mg/dL (7-18); CO2 22.7 mmol/L (21.0-32.0); CREATININE 0.8 mg/dL (0.55-1.02); Calcium 9.1 mg/dL (8.5-10.1); Chloride 104 mmol/L (98-107); Estimated GFR 99.71 (mL/min/1.73m2); Glucose 111 mg/dL (74-106); Potassium 3.6 mmol/L (3.5-5.1); Sodium 140 mmol/L (136-145)
== END 2023-04-14 02:43 | disposition home or self-care (01) ==
LOC: ER 02:14
PROVIDERS: Emergency Provider Emergency Medicine; PCP Student in an Organized Health Care Education/Training Program
DX: R51.9 Headache, unspecified (principal)
CPT/HCPCS: 36415; 80053; 93005; 96361; 96374; 96375; 99284; 85025; 93010; J1200; J1885; J2405

== ENCOUNTER 2023-05-03 09:09 | Emergency (ER) | payer OTHER, SELFPAY ==
[2023-05-03 09:11] VITALS: BP 134/103; PULSE 72; RESP 20; TEMP 36.7; O2SAT 97
--- NOTE | 2023-05-03 09:30 | ED.GENADUL_ITS ---
Discharge Plan Disposition Patient Disposition: Home Discharge Details Clinical Impression: Strain of knee and leg, left Primary Care Provider: Dorinda Kaminski ED Provider: Bravo Hobbs Home Meds and New Rx's Prescriptions: New diclofenac sodium 3 % gel 1 applic topical TID Qty: 100 0RF Continued Galzin 50 mg (zinc) capsule 50 mg PO DAILY multivitamin [Daily Multi-Vitamin] Tablet 1 tab PO DAILY ibuprofen 600 mg tablet 600 mg PO Q6H PRNQty: 90 2RF verapamil 120 mg tablet extended release 120 mg PO DAILY Patient Comments: TAKE ONE TABLET BY MOUTH EVERY DAY lamotrigine 25 mg tablet 50 mg PO DAILY Patient Comments: TAKE ONE TABLET BY MOUTH EVERY DAY FOR 7 DAYS bupropion HCl 150 mg tablet extended release 24 hr 150 mg PO DAILY Patient Comments: TAKE ONE TABLET BY MOUTH EVERY DAY Discontinued MediHoney (honey) 80 % gel 1 applic topical DAILY Qty: 15 0RF Patient Comments: no longer using Rx Instructions: apply thin coating to packing each day pack loosely to the base of the wound, you should be slowly using less and less packing each time Discharge Instructions Instructions: Knee Pain (ED) Additional Instructions: You may continue to use [id number] acetaminophen along with the prescribed pain gel. If you have any new or significant worsening symptoms feel free to return the emergency department for reassessment otherwise follow-up with your primary care provider. Referrals: Dorinda Kaminski [Primary Care Provider] - Discharge Data Discharge Date/Time-TO BE ENTERED AT DEPARTURE: 05/03/23 09:56 Medical Decision Making Patient presenting the emergency department for chief complaint of left knee pain. No specific injury or trauma, no twist, patient is weightbearing. Physical exam shows no ligamentous injury, there is soft tissue tenderness to the prepatellar area but otherwise unremarkable exam. I suspect a soft tissue injury but nothing emergent. Discussed with patient conservative therapy with acetaminophen and patient states that oral NSAIDs irritate stomach so did Voltaren gel. Patient given hinged knee brace which she stated significantly improved symptoms. After discussion of diagnosis and plan of care patient has no further needs, questions, or concerns and states clear understanding to return to the emergency department for any worsening symptoms. This documentation was generated using [employer] system, please disregard any oddities of phrase or misspellings. HPI General Mode of arrival: ambulatory . Date/Time Provider Initiated Documentation: 05/03/23 09:13 . Limitations to Documentation: no limitations . Information obtained by: patient and RN notes reviewed . History of Present Illness 32 year old F presents to the emergency department with the chief complaint of left knee pain , described as moderate, Quality is described as aching and sharp, and is localized to the lower extremity. Patient started experiencing this day(s) (3) and it has been constant. Rest improves symptom(s), Movement worsens symptoms . Patient notes no other symptoms.. Patient did receive the following treatments prior to arrival, other (Acetaminophen) Related Data Home Medications Medication Instructions Recorded Confirmed ibuprofen 600 mg tablet 600 mg PO Q6H PRN #90 tabs 03/27/22 05/03/23 multivitamin (Daily Multi-Vitamin 1 tab PO DAILY 05/06/22 05/03/23 tablet) zinc acetate 50 mg (zinc) capsule 50 mg PO DAILY 05/06/22 05/03/23 (Galzin) bupropion HCl 150 mg 24 hr tablet, 150 mg PO DAILY 05/03/23 05/03/23 extended release diclofenac sodium 3 % topical gel 1 applic topical TID #100 grams 05/03/23 lamotrigine 25 mg tablet 50 mg PO DAILY 05/03/23 05/03/23 verapamil 120 mg tablet,extended 120 mg PO DAILY 05/03/23 05/03/23 release Previous Rx's Medication Instructions Recorded ibuprofen 600 mg tablet 600 mg PO Q6H PRN #90 tabs 03/27/22 diclofenac sodium 3 % topical gel 1 applic topical TID #100 grams 05/03/23 Allergies Allergy/AdvReac Type Severity Reaction Status Date / Time silver Allergy Intermediate rash, Verified 04/14/23 00:54 stinging meloxicam Allergy Unverified 04/14/23 00:54 acetaminophen [From Percocet] AdvReac Unverified 04/14/23 00:54 oxycodone [From Percocet] AdvReac Unverified 04/14/23 00:54 General Stated Complaint: Orthopedic YESENIA: 3 Review of Systems Narrative: 6 systems reviewed and unremarkable except what is marked below. Constitutional Constitutional: Denies fever(s) Musculoskeletal Musculoskeletal: Reports as per HPI, Reports arthralgias, Denies joint swelling, Denies numbness, Reports stiffness and Denies tingling Integumentary/Breasts Skin/Breast: Denies erythema and Denies rash Neurologic Neurologic: Denies numbness and Denies tingling PFSH All Active Problems (Updated 05/03/23 @ 09:42 by Bravo Hobbs NP) Headache (Acute) Strain of knee and leg, left (Acute) Appendicitis (Acute) Surgical site infection (Acute) Acute appendicitis (Acute) Migraine (Chronic) Medical History ADHD Bipolar disorder Migraine Surgical History H/O laparoscopy Social History Smoking/Tobacco Use Status: Former Tobacco Use Quit Date: 09/27/19 Smoking risk assessment performed?: Yes Alcohol Intake: current Alcohol Intake frequency: a few times a month Alcohol type: other Drug use: Daily Substance use type: marijuana Housing: house Do you feel safe at home: Yes Do you feel safe in your relationship?: Yes Exam Const General: cooperative, no acute distress and not ill appearing Orientation: alert, awake and oriented x3 HENMT Mouth: moist mucous membranes Resp Effort & Inspection: normal respiratory effort, able to speak in complete sentences and no respiratory distress Cardio Rate: regular rate Rhythm: regular rhythm Skin General skin exam: no rashes or lesions noted Neuro General: patient alert, patient awake, patient oriented x3, moves all extremities and no focal motor deficits Sensory Exam: no sensory deficits noted Extrem General: normal exam except as noted Left lower extremity: knee Details: tenderness Location: of the pre-patellar area; not of the medial joint line and not of the lateral joint line, normal ROM and knee ligament exam normal; no swelling, no abrasions, no ecchymosis and no crepitus Course Vital Signs Vital signs: Vital Signs Temperature 36.7 C 05/03/23 09:11 Pulse 72 05/03/23 09:11 Respiratory Rate 20 05/03/23 09:11 Blood Pressure 134/103 H 05/03/23 09:11 Pulse Oximetry 97 05/03/23 09:11 Temperature 36.7 C 05/03/23 09:11 Temperature Source Skin 05/03/23 09:11 Pulse 72 05/03/23 09:11 Respiratory Rate 20 05/03/23 09:11 Blood Pressure 134/103 H 05/03/23 09:11 Blood Pressure Position Sitting 05/03/23 09:11 Pulse Oximetry 97 05/03/23 09:11 Oxygen Delivery Method Room Air 05/03/23 09:11 Oxygen Flow Rate 0 05/03/23 09:11 Pain Level 6 05/03/23 09:11
[2023-05-03 09:55] VITALS: BP 137/86; PULSE 76; RESP 15; TEMP 36.6; O2SAT 97
== END 2023-05-03 09:56 | disposition home or self-care (01) ==
PROVIDERS: Emergency Provider Nurse Practitioner Family; PCP Student in an Organized Health Care Education/Training Program
DX: S86.912A Strain of unspecified muscle(s) and tendon(s) at lower leg level, left leg, initial encounter (principal); X58.XXXA Exposure to other specified factors, initial encounter
CPT/HCPCS: 99283

== ENCOUNTER 2023-11-26 11:03 | Outpatient (REF) | payer OTHER, SELFPAY ==
--- NOTE | 2023-11-26 10:13 | PAPFT_PTH ---
PATIENT: Janet Martinez LOC: [facility] U#:[id number] AGE/SX: 33/F ROOM: RE11/26/[address]: Mariel Kelly MD : 1990 BED: DIS: 11/26/2023 SPEC #: [id number] RECD: 11/26/23 12:54 STATUS: MATTIE REQ #: [id number] AMITA: 11/26/23 10:[address]: Mariel Kelly DEPT: [facility] Cytology RECD BY: Alba Manzano ENTERED: 11/26/23 12:55 SP TYPE: PAPFT OTHR DR: Dorinda Kaminski Tissues: 1 - CX/ENDOCX FOR PAP SMEARS Procedures: PAP THIN PREP/[facility]VM Screening HPV DNA PROBE Comments: [id number] (HVP 16 & 18/45)
== END 2023-11-26 11:04 | disposition home or self-care (01) ==
LOC: LBN 11:03
PROVIDERS: PCP Student in an Organized Health Care Education/Training Program; Visit Provider Obstetrics & Gynecology
DX: Z01.419 Encounter for gynecological examination (general) (routine) without abnormal findings (principal)
CPT/HCPCS: 88142; 87624

== ENCOUNTER 2024-08-08 17:55 | Outpatient (REF) | payer OTHER, SELFPAY ==
--- NOTE | 2024-08-08 15:40 | PAPFT_PTH ---
PATIENT: Janet Martinez LOC: [facility] U#:[id number] AGE/SX: 34/F ROOM: RE08/08/[address]: Mariel Kelly MD : 1990 BED: DIS: 08/08/2024 SPEC #: [id number] RECD: 08/08/24 18:16 STATUS: MATTIE REQ #: [id number] AMITA: 08/08/24 15:[address]: Mariel Kelly DEPT: [facility] Cytology RECD BY: Alba Manzano ENTERED: 08/08/24 18:17 SP TYPE: PAPFT OTHR DR: Dorinda Kaminski Tissues: 1 - CX/ENDOCX FOR PAP SMEARS Procedures: PAP THIN PREP/UVM Screening HPV DNA PROBE Comments: [id number] (HPV 16 & 18/45)
== END 2024-08-08 17:56 | disposition home or self-care (01) ==
LOC: LBN 17:55
PROVIDERS: PCP Student in an Organized Health Care Education/Training Program; Visit Provider Obstetrics & Gynecology
DX: Z12.4 Encounter for screening for malignant neoplasm of cervix (principal); Z72.51 High risk heterosexual behavior
CPT/HCPCS: 88142; 87624

== ENCOUNTER 2024-08-31 10:06 | Emergency (ER) | payer OTHER, SELFPAY ==
[2024-08-31] VITALS (11 sets, daily range): BP systolic 118–153; BP diastolic 63–109; PULSE 68–91; RESP 8–27; TEMP 36.6–36.9; O2SAT 96–99
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
[2024-08-31] MEDS: Acetaminophen 500 MG TAB 1000 MG PO (10:46)
[2024-08-31] MEDS: Ibuprofen 600 MG TAB PO (10:46)
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
== END 2024-08-31 12:49 | disposition home or self-care (01) ==
PROVIDERS: Emergency Provider Emergency Medicine; PCP Student in an Organized Health Care Education/Training Program
DX: S39.012A Strain of muscle, fascia and tendon of lower back, initial encounter; V48.5XXA Car driver injured in noncollision transport accident in traffic accident, initial encounter; R11.0 Nausea; R51.9 Headache, unspecified
CPT/HCPCS: 99284; 70450; 72125; 72128; 72131

== ENCOUNTER 2024-09-07 08:06 | Emergency (ER) | payer OTHER, SELFPAY ==
[2024-09-07] VITALS (21 sets, daily range): BP systolic 109–136; BP diastolic 63–81; PULSE 57–74; RESP 12–24; TEMP 36.9; O2SAT 92–99
--- NOTE | 2024-09-07 08:30 | DI.CT_ITS ---
Exam(s) CT BRAIN NECK CTA EXAM: CT BRAIN NECK CTA CLINICAL HISTORY: recurrent HI, dizziness , DANIELS, confusion. TECHNIQUE: Imaging Protocol: Axial CT angiography was performed with multi-slice acquisition and mu lti-planar and/or 3D reconstructions. CONTRAST MATERIAL: Intravenous: Omnipaque 350 Contrast volume:70 cc COMPARISON: CT CT HEAD CERVICAL SPINE WO from 08/31/2024 FINDINGS: CTA Neck W: Aortic arch anatomy: The aortic arch anatomy is conventional and there is no significant stenosis at the origin of the great vessels off of the aortic arch. No intimal flap evident. Anterior circulation: Both common carotid arteries ascend with normal luminal diameters. At the level the carotid bulbs and proximal internal carotid arteries there is minimal plaque without hemodynamically significant stenosis evident. Posterior circulation: Both vertebral arteries originate in conventional fashion off of the subclavian arteries and there is no obvious stenosis at the origin of the vertebral arteries. Both vertebral arteries exhibit normal luminal diameters within the foramen transversarium. No evide nce of intraluminal filling defects nor dissection of the vertebral arteries. Both vertebral arteries contribute to the formation of the basilar artery at the skull base. CTA Brain W: Anterior circulation: Both internal carotid arteries are patent in the skull base-carotid canals as well as within the cave rnous sinuses. The supraclinoid aspects of the ICAs are patent. Both A1 segments are patent as are the anterior cer ebral arteries and there is no evidence of aneurysm at the level of the anterior communicating artery . Both middle cerebral arteries are patent with no evidence of significant stenosis nor intraluminal th rombus. There also no aneurysms of these vessels. Posterior circulation: The basilar artery ascends in the midline. Distally it gives off patent bilateral superior cerebella r arteries. Above this level the basilar artery terminates as patent bilateral posterior cerebral arteries. There is no evidence of aneurysm at the tip of the basilar artery nor elsewhere in the [id number] is. CT BRAIN: There is no evidence of intracranial hemorrhage, mass effect, or shift of midline structures. There are no extra-axial fluid collections. Ventricles are not enlarged or shifted. There are no ring enh ancing lesions in the brain and no abnormal meningeal enhancement. Persistent septum cavum pellucidum again noted. CT CERVICAL SPINE: No evidence of fracture, listhesis nor offset of the spinal laminar line. Disc spaces exhibit normal height. No osseous lesions. No significant facet arthropathy nor facet malalignment. There is no osteophytic encroachment upon the vertebral arteries within the foramen transversarium. IMPRESSION: 1. Patent carotid arteries in the neck. No hemodynamically significant stenosis. 2. Patent vertebral arteries. 3. Patent intracranial arteries. 4. No acute intracranial findings. Persistent septum cavum pellucidum noted Report called by myself to ER provider 09/07/2024 10:20 a.m. RADIATION DOSE DELIVERED: 2,045.94mGy.cm Total DLP DATA REPOSITORY: All CT scans at this facility are submitted to the National Radiology Data Registry (NRDR) Dose Index Registry (DIR) with the [employer] (ACR). RADIATION OPTIMIZATION: All CT scans at this facility use at least one of these dose optimization te chniques: automated exposure control; mA and/or kV adjustment per patient size (includes targeted exa ms where dose is matched to clinical indication); or iterative reconstruction.
--- NOTE | 2024-09-07 08:30 | RT.EKG_ITS ---
APPROVED REPORT Exam: Resting ECG Reason for Exam: syncope Patient Location: E HR:65 bpm ECG Measurements Heart Rate 65 AXIS OR 168 P 63 QRSd 110 QRS 73 QT 389 T 54 QTc 406 Conclusion Sinus rhythm, rate 65 No interval abnormalities No STEMI No significant changes from priors
[2024-09-07 09:06] LABS: Bilirubin Negative (Negative); Blood Negative (Negative); Clarity Clear (Clear); Glucose Negative (Negative); Ketones Negative (Negative); Leukocyte Esterase Negative (Negative); Nitrite Negative (Negative); Specific Gravity 1.015 (1.005-1.025); Urobilinogen 0.2 mg/dL (Up to 0.2)
[2024-09-07 09:16] LABS: Abs Immature Grans 0.03 10^3/uL (0.0-0.06); Absolute Basophil Count 0.04 10^3/uL (0.0-0.2); Absolute Eosinophil Count 0.02 10^3/uL (0.0-0.7); Absolute Lymphocyte Count 1.59 10^3/uL (1.2-3.4); Absolute Monocyte Count 0.69 10^3/uL (0.1-0.8); Absolute Neutrophil Count 6.91 10^3/uL (1.2-6.7); Basophils % 0.4 %; Eosinophils % 0.2 %; HCT 42.4 % (36.0-46.0); Immature Grans % 0.3 %; Lymphocytes % 17.1 %; MCH 30.9 pg (27.0-33.0); MCHC 35.4 % (32.0-36.0); MCV 87 fL (80-95); MPV 9.2 fL (8.0-11.0); Monocytes % 7.4 %; Neutrophils % 74.6 %; Platelet Count 339 10^3/uL (130-400); RBC 4.86 10^6/uL (3.93-5.22); RDW 11.8 % (11.7-14.6); RDW-SD 37.9 fL; WBC 9.28 10^3/uL (4.4-10.8)
[2024-09-07] MEDS: Normal Saline - Diluent 50 ML VIAL IJ (09:22)
[2024-09-07] MEDS: ACETAMINOPHEN 650 MG/65 ML BAG 260 MG IVPB (09:46)
[2024-09-07 09:49] LABS: Troponin I 8 ng/L (<or=51)
[2024-09-07 09:52] LABS: ALT 51 U/L (14-59); AST 19 U/L (15-37); Alkaline Phosphatase 77 U/L (46-116); Anion Gap 9.5 mmol/L (3-11); BUN 10 mg/dL (7-18); Bilirubin, Total 0.34 mg/dL (0.2-1.0); CO2 25.5 mmol/L (21.0-32.0); CREATININE 0.8 mg/dL (0.55-1.02); Calcium 9.3 mg/dL (8.5-10.1); Chloride 107 mmol/L (98-107); Estimated GFR 98.48 (mL/min/1.73m2); Glucose 144 mg/dL (74-106); Magnesium 2.1 mg/dL (1.8-2.4); Potassium 3.9 mmol/L (3.5-5.1); Sodium 142 mmol/L (136-145); TSH (W/Ref FT4) 1.11 uIU/mL (0.36-3.74); Total Protein 7.2 g/dL (6.4-8.2)
[2024-09-07 10:32] LABS: Troponin I 9 ng/L (<or=51)
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
== END 2024-09-07 10:47 | disposition home or self-care (01) ==
PROVIDERS: Emergency Provider Physician Assistant; PCP Student in an Organized Health Care Education/Training Program
DX: R51.9 Headache, unspecified (principal); S00.83XA Contusion of other part of head, initial encounter; E06.3 Autoimmune thyroiditis; Z79.899 Other long term (current) drug therapy; W18.11XA Fall from or off toilet without subsequent striking against object, initial encounter; Y93.E8 Activity, other personal hygiene; Y92.012 Bathroom of single-family (private) house as the place of occurrence of the external cause
CPT/HCPCS: 36415; 70496; 70498; 80053; 81025; 93005; 96365; 99285; 81003; 83735; 84443; 84484; 85025; 93010; J0131

== ENCOUNTER 2025-06-20 17:16 | Emergency (ER) | payer OTHER, SELFPAY ==
[2025-06-20 17:18] VITALS: BP 149/94; PULSE 81; RESP 18; TEMP 36.7; O2SAT 98
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
[2025-06-20 18:11] LABS: Abs Immature Grans 0.04 10^3/uL (0.0-0.06); HCT 42.7 % (36.0-46.0); HGB 15.1 g/dL (11.2-15.7); Immature Grans % 0.4 %; MCH 30.7 pg (27.0-33.0); MCHC 35.4 % (32.0-36.0); MCV 87 fL (80-95); MPV 9.2 fL (8.0-11.0); Platelet Count 343 10^3/uL (130-400); RBC 4.92 10^6/uL (3.93-5.22); RDW 12.1 % (11.7-14.6); RDW-SD 38.5 fL; WBC 10.66 10^3/uL (4.4-10.8)
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
[2025-06-20 18:21] LABS: Glucose Negative (Negative)
[2025-06-20 18:27] LABS: C & S Indicated? No
[2025-06-20 18:46] LABS: ALT 24 U/L (14-59); AST 17 U/L (15-37); Albumin 4.5 g/dL (3.4-5.0); Alkaline Phosphatase 62 U/L (46-116); Anion Gap 12.0 mmol/L (3-11); BUN 8 mg/dL (7-18); Bilirubin, Total 0.7 mg/dL (0.2-1.0); CO2 24.0 mmol/L (21.0-32.0); Calcium 9.3 mg/dL (8.5-10.1); Chloride 103 mmol/L (98-107); Estimated GFR 114.88 (mL/min/1.73m2); Glucose 100 mg/dL (74-106); Potassium 3.5 mmol/L (3.5-5.1); Sodium 139 mmol/L (136-145); Total Protein 7.5 g/dL (6.4-8.2)
[2025-06-20 19:15] LABS: HCG Quant, Pregnancy 1339 mIU/mL (1-3)
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
== END 2025-06-20 21:56 | disposition home or self-care (01) ==
PROVIDERS: Emergency Provider Physician Assistant; PCP Student in an Organized Health Care Education/Training Program
DX: O26.91 Pregnancy related conditions, unspecified, first trimester (principal); R10.2 Pelvic and perineal pain; Z87.891 Personal history of nicotine dependence
CPT/HCPCS: 00123; 36415; 76775; 76817; 76857; 80053; 99284; 81003; 81015; 84702; 85025; 87086

== ENCOUNTER 2025-06-22 18:35 | Outpatient (CLI) | payer OTHER, SELFPAY ==
[2025-06-22 16:37] LABS: HCG Quant, Pregnancy 3473 mIU/mL (1-3)
== END 2025-06-22 18:36 | disposition home or self-care (01) ==
LOC: LBO 18:35
PROVIDERS: PCP Student in an Organized Health Care Education/Training Program; Visit Provider Obstetrics & Gynecology
DX: O36.80X0 Pregnancy with inconclusive fetal viability, not applicable or unspecified (principal)
CPT/HCPCS: 36415; 84702

== ENCOUNTER 2025-07-13 06:46 | Emergency (ER) | payer OTHER, SELFPAY ==
[2025-07-13 06:56] VITALS: BP 137/91; PULSE 70; RESP 20; TEMP 36.9; O2SAT 98
--- NOTE | 2025-07-13 07:26 | W.ED.GENAD ---
Discharge Plan Disposition Patient Disposition: Home Condition: Stable Discharge Details Clinical Impression: Nausea and vomiting in Primary Care Provider: Dorinda Kaminski ED Provider: Mindi Dexter Home Meds and New Rx's Prescriptions: New promethazine 25 mg tablet 25 mg PO TID PRNQty: 10 0RF promethazine 25 mg suppository 25 mg NE Q6H PRNQty: 12 0RF polyethylene glycol 3350 [Miralax] 17 gram/dose powder 17 g PO DAILY Qty: 119 0RF Unisom (doxylamine) 25 mg tablet 25 mg PO QHS PRNQty: 10 0RF No Action levothyroxine [Levoxyl] 25 mcg tablet 25 mcg PO DAILY sertraline [Zoloft] 25 mg tablet 100 mg PO DAILY lamotrigine 50 mg tablet extended release 24hr 50 mg PO BID ondansetron HCl 4 mg tablet 4 mg PO Q6H PRN (Reason: nausea and vomiting) Qty: 30 0RF metoclopramide HCl [Reglan] 10 mg tablet 10 mg PO Q6H PRN (Reason: nausea and vomiting) Qty: 20 0RF bupropion HCl 150 mg tablet extended release 24 hr 150 mg PO DAILY Patient Comments: TAKE ONE TABLET BY MOUTH EVERY DAY quetiapine [Seroquel] 25 mg tablet 25 mg PO QHS Patient Comments: 11/27/24- pt reports takes up to 100 mg q hS for sleep. PNV no.95-ferrous fumarate-FA [ Multivitamins] 28 mg iron- 800 mcg tablet 1 tab PO DAILY Discharge Instructions Instructions: Hyperemesis Gravidarum (DC) Additional Instructions: You were seen in the emergency department today for evaluation of nausea and vomiting during . In our department you had a full physical examination performed and had reassuring laboratory studies including a normal thyroid function level. The ultrasound shows an appropriate heart rate, and you received IV fluids and medications to manage your nausea. I recommend that you trial the promethazine, and nausea medication that can be taken by mouth or rectally. Do not take this at the same time as your Zofran or your Reglan, as they act in quite similar ways. Additionally, you can trial the Unisom at bedtime with your vitamin as this can help with nausea and vomiting in early as well. You have evidence of constipation and I recommend adding MiraLAX to your fiber supplement and Dulcolax. You can take 1 capful 1-2 times per day, and should adjust this dosing until you are passing 1 soft (toothpaste consistency) stool per day. Please follow-up with your primary care provider in the next few days to discuss this visit and any symptoms that change, worsen, or persist. Thank you for allowing us to be part of your care. Stand Alone Forms: Work Release HPI General Mode of arrival: ambulatory. Date/Time Provider Initiated Documentation: 07/13/25 06:50. Limitations to Documentation: no limitations. Information obtained by: patient, family and old records reviewed. HPI Narrative: This is a 35-year-old female patient, at an estimated 8 weeks gestation, presenting for evaluation of nausea and bloating. The patient reports that she has been struggling with constipation throughout her , has been taking fiber as well as Dulcolax, last passed the stool yesterday. She states that her nausea and vomiting throughout has been bad since week 6, she has trialed Zofran and Reglan at home without significant improvement. She feels like she has not been able to stay hydrated, and specifically endorses concerns that she is not able to take her medications reliably, including her thyroid medication and her mental health medications. She reports that she has not had any vaginal bleeding or new discharge, denies dysuria, has not had a fever. No cramping or contraction-like abdominal pain. Related Data Home Medications ?Medication ?Instructions ?Recorded ?Confirmed levothyroxine 25 mcg tablet 25 mcg PO DAILY 11/26/23 07/13/25 (Levoxyl) quetiapine 25 mg tablet (Seroquel) 25 mg PO QHS 08/31/24 07/13/25 vit no.95-ferrous 1 tab PO DAILY 06/20/25 07/13/25 fumarate 28 mg-folic acid 800 mcg tablet ( Multivitamins) bupropion HCl 150 mg 24 hr tablet, 150 mg PO DAILY 06/21/25 07/13/25 extended release lamotrigine 50 mg tablet,extended 50 mg PO BID 06/21/25 07/13/25 release 24 hr sertraline 25 mg tablet (Zoloft) 100 mg PO DAILY 06/21/25 07/13/25 ondansetron HCl 4 mg tablet 4 mg PO Q6H PRN nausea and 07/04/25 07/13/25 vomiting #30 tabs metoclopramide HCl 10 mg tablet 10 mg PO Q6H PRN nausea and 07/10/25 07/13/25 (Reglan) vomiting #20 tabs doxylamine succinate 25 mg tablet 25 mg PO QHS PRN #10 tabs 07/13/25 (Unisom (doxylamine)) polyethylene glycol 3350 17 17 g PO DAILY #119 grams 07/13/25 gram/dose oral powder (Miralax) promethazine 25 mg rectal 25 mg NE Q6H PRN #12 ea 07/13/25 suppository promethazine 25 mg tablet 25 mg PO TID PRN #10 tabs 07/13/25 Previous Rx's ?Medication ?Instructions ?Recorded ondansetron HCl 4 mg tablet 4 mg PO Q6H PRN nausea and 07/04/25 vomiting #30 tabs metoclopramide HCl 10 mg tablet 10 mg PO Q6H PRN nausea and 07/10/25 (Reglan) vomiting #20 tabs doxylamine succinate 25 mg tablet 25 mg PO QHS PRN #10 tabs 07/13/25 (Unisom (doxylamine)) polyethylene glycol 3350 17 17 g PO DAILY #119 grams 07/13/25 gram/dose oral powder (Miralax) promethazine 25 mg rectal 25 mg NE Q6H PRN #12 ea 07/13/25 suppository promethazine 25 mg tablet 25 mg PO TID PRN #10 tabs 07/13/25 Allergies Allergy/AdvReac Type Severity Reaction Status Date / Time oxycodone (From Percocet) Allergy Intermediate vomiting Verified 07/13/25 07:00 silver Allergy Intermediate rash, Verified 07/13/25 07:00 stinging meloxicam Allergy hives Verified 07/13/25 07:00 General Stated Complaint: Nausea/Vomit/Diar YESENIA: 3 Exam Narrative Exam Narrative: Gen: Awake and alert, in no apparent distress HEENT: Non-icteric sclera Neck: Supple Lungs: No apparent respiratory distress, normal respiratory effort. Lung sounds clear and equal CV: Appears well perfused, heart with regular rate and rhythm, strong distal pulses Abdomen: Non-distended, soft, minimal tenderness to palpation in a generalized distribution without rigidity, rebound, or guarding MSK: Moves 4 extremities without apparent limitation in ROM Skin: Visualized skin without rashes, cyanosis. Neuro: Normal Gait, no obvious focal deficits or facial asymmetry. Speaks in full, clear sentences. Psych: Appropriate for situation. Course Vital Signs Vital signs: Vital Signs Temperature 36.9 C 07/13/25 06:56 Pulse 70 07/13/25 06:56 Respiratory Rate 20 07/13/25 06:56 Blood Pressure 137/91 H 07/13/25 06:56 Pulse Oximetry 98 07/13/25 06:56 Temperature 36.9 C 07/13/25 06:56 Temperature Source Oral 07/13/25 06:56 Pulse 70 07/13/25 06:56 Respiratory Rate 20 07/13/25 06:56 Blood Pressure 137/91 H 07/13/25 06:56 Blood Pressure Position Supine 07/13/25 06:56 Pulse Oximetry 98 07/13/25 06:56 Oxygen Delivery Method Room Air 07/13/25 06:56 Oxygen Flow Rate 0 07/13/25 06:56 Medical Decision Making This is a 35-year-old female patient presenting for evaluation of nausea with vomiting, constipation, and abdominal discomfort in early . My differential includes but is not limited to hyperemesis gravidarum, morning sickness, certainly considered metabolic and electrolyte derangement, dehydration, kidney injury. The patient had a reassuring bedside ultrasound as noted below, with an appropriate heart rate which is less suggestive of miscarriage or loss. She has no peritonitic findings and her exam and history are less concerning for etiology such as appendicitis, diverticulitis, bowel obstruction, pancreatitis, cholecystitis, hepatitis. The patient is very early in and without hypertension to suggest hellp or preeclamptic symptoms. I will provide the patient with a liter of IV fluids, dose of Zofran, and obtain labs to include CBC, CMP, magnesium, TSH, lipase, and urinalysis. -I reviewed the patient's laboratory studies, which show no leukocytosis, anemia or thrombocytopenia. Chemistry panel without electrolyte derangements, evidence of kidney or liver dysfunction. Lipase is low and the TSH is within normal limits. Her UA shows trace blood but no evidence of ketonuria or infectious findings that are concerning for UTI. Shows trace blood but no evidence of ketonuria or infectious findings that are concerning for UTI. On reevaluation the patient reports improvement in her symptoms, and she was able to tolerate oral intake without ongoing nausea or vomiting. On reevaluation her abdominal examination remains benign and I do not feel that advanced imaging is indicated in this patient. She has no evidence on her laboratory workup of severe dehydration that would require admission for further intravenous rehydration. I did recommend that she supplement her fiber and Dulcolax with MiraLAX to ensure that she is passing adequate stool to avoid symptoms due to her constipation. I also recommended that she trial Phenergan and Unisom with her vitamin which already contains B6. At this time, the patient has had a full medical evaluation and is safe for discharge to home. They are hemodynamically stable, ambulatory, and tolerating PO. They are understanding of the follow-up plan and return precautions. They left our facility without incident. Mindi Dexter MD PFSH All Active Problems (Updated 07/13/25 @ 08:51 by Mindi Dexter MD) Nausea and vomiting in (Acute) of unknown anatomic location (Acute) Pelvic pain during (Acute) Migraine (Chronic) Medical History Jeni's thyroiditis History of abnormal cervical Pap smear Due Jul 2025: Jul 2024: ASCUS/HPV+ colp done same day: benign appearing November 2023: NIL/HRHPV+ didn't come for colp Apr 2022: NIL/+HRHPV (neg 16/18) --> colp: insufficient cells February 2021: NIL/+HRHPV (neg 16/18) Jul 2019: NIL/+HRHPV (neg 16/18) Apr 2018: ASCUS/+HRHPV (neg 16/18) Apr 2017: ASCUS/+HRHPV (neg 16/18) ADHD Bipolar disorder Currently stable november 2023 Distant h/o suicide attempt Surgical History H/O laparoscopy Appendectomy - Dr. 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, finishing psychology degree Do you feel safe at home: Yes Do you feel safe in your relationship?: Yes Female Reproductive History Menstrual Age of Menarche: 11 Duration of menses: 3-5 days control method: condoms History History 2 Para 0 Hx # Term Pregnancies Multiple births Hx # Pregnancies Ectopic pregnancies AB induced Hx Number of Living Children 0 AB spontaneous 1 POCUS Exam (ED) Limited OB Exam DATE OF EXAM:: 07/13/25 TIME OF EXAM:: 07:15 PROVIDER THAT PERFORMED THE STUDY: Mindi Dexter Type of Exam: Pelvic OB Trans Abdominal REASON FOR EXAM: Abdominal Pain VISUALIZED STRUCTURES: Poll and Uterus PERTINENT FINDINGS/IMPRESSION: cardiac activity and No apparent abnormalities Exam Complete.
[2025-07-13 07:28] VITALS: BP 137/91; PULSE 70; RESP 20; TEMP 36.9; O2SAT 98
[2025-07-13 07:45] LABS: Abs Immature Grans 0.07 10^3/uL (0.0-0.06); HCT 42.8 % (36.0-46.0); HGB 15.2 g/dL (11.2-15.7); Immature Grans % 0.7 %; MCH 31.1 pg (27.0-33.0); MCHC 35.5 % (32.0-36.0); MCV 88 fL (80-95); MPV 8.9 fL (8.0-11.0); Platelet Count 286 10^3/uL (130-400); RBC 4.88 10^6/uL (3.93-5.22); RDW 12.1 % (11.7-14.6); RDW-SD 38.7 fL; WBC 10.73 10^3/uL (4.4-10.8)
[2025-07-13] MEDS: Lactated Ringers 1,000 ML 1000 ML IV (07:50)
[2025-07-13] MEDS: Ondansetron 4 MG/2 ML VIAL IVP (07:50)
[2025-07-13 07:54] LABS: Glucose Negative (Negative)
[2025-07-13 08:00] VITALS: BP 139/82; PULSE 63; RESP 16; O2SAT 99
[2025-07-13 08:01] LABS: ALT 35 U/L (14-59); AST 12 U/L (15-37); Albumin 3.9 g/dL (3.4-5.0); Alkaline Phosphatase 62 U/L (46-116); Anion Gap 10.6 mmol/L (3-11); BUN 6 mg/dL (7-18); Bilirubin, Total 0.5 mg/dL (0.2-1.0); CO2 25.4 mmol/L (21.0-32.0); Calcium 8.7 mg/dL (8.5-10.1); Chloride 102 mmol/L (98-107); Estimated GFR 119.23 (mL/min/1.73m2); Glucose 95 mg/dL (74-106); Lipase 22 U/L (<78); Magnesium 2.3 mg/dL (1.8-2.4); Potassium 3.6 mmol/L (3.5-5.1); Sodium 138 mmol/L (136-145); Total Protein 7.0 g/dL (6.4-8.2)
[2025-07-13 08:03] LABS: WBC 0-2 HPF (0-5)
[2025-07-13 08:04] LABS: C & S Indicated? No
[2025-07-13 08:12] LABS: TSH (W/Ref FT4) 1.37 uIU/mL (0.36-3.74)
[2025-07-13 08:47] VITALS: BP 134/82; PULSE 74; RESP 16; O2SAT 100
== END 2025-07-13 09:04 | disposition home or self-care (01) ==
PROVIDERS: Emergency Provider Emergency Medicine; PCP Student in an Organized Health Care Education/Training Program
DX: Z3A.08 8 weeks gestation of pregnancy; O21.8 Other vomiting complicating pregnancy; R14.0 Abdominal distension (gaseous)
CPT/HCPCS: 36415; 76815; 80053; 83690; 96361; 96374; 99284; 81003; 81015; 83735; 84100; 84443; 85025; J2405

== ENCOUNTER 2025-08-03 02:54 | Outpatient (CLI) | payer OTHER, SELFPAY ==
[2025-08-03 17:04] LABS: Abs Immature Grans 0.12 10^3/uL (0.0-0.06); HCT 37.7 % (36.0-46.0); HGB 13.6 g/dL (11.2-15.7); Immature Grans % 1.0 %; MCH 31.2 pg (27.0-33.0); MCHC 36.1 % (32.0-36.0); MCV 87 fL (80-95); MPV 9.1 fL (8.0-11.0); Platelet Count 318 10^3/uL (130-400); RBC 4.36 10^6/uL (3.93-5.22); RDW 12.3 % (11.7-14.6); RDW-SD 39.1 fL; WBC 12.53 10^3/uL (4.4-10.8)
[2025-08-03 17:41] LABS: Hemoglobin A1C 5.2 % (<5.7)
[2025-08-03 17:56] LABS: ALT 31 U/L (14-59); AST 12 U/L (15-37); Albumin 3.7 g/dL (3.4-5.0); Alkaline Phosphatase 65 U/L (46-116); Anion Gap 13.3 mmol/L (3-11); BUN 7 mg/dL (7-18); Bilirubin, Total 0.3 mg/dL (0.2-1.0); CO2 20.7 mmol/L (21.0-32.0); Calcium 8.4 mg/dL (8.5-10.1); Chloride 101 mmol/L (98-107); Glucose 96 mg/dL (74-106); Potassium 3.4 mmol/L (3.5-5.1); Sodium 135 mmol/L (136-145); TSH (W/Ref FT4) 4.24 uIU/mL (0.36-3.74); Total Protein 7.1 g/dL (6.4-8.2)
[2025-08-05 09:19] LABS: HIV-1/2 Ag & Ab Screen Negative (Negative)
[2025-08-06 10:53] LABS: Rubella IgG Ab (UVM) Positive (See Note)
[2025-08-06 12:02] LABS: Hepatitis C Ab w Rflx HCV PCR Negative (Negative)
[2025-08-07 20:26] LABS: Syphilis IgG w/Reflex Nonreactive (Nonreactive)
== END 2025-08-03 02:55 | disposition home or self-care (01) ==
LOC: LBO 02:55
PROVIDERS: PCP Student in an Organized Health Care Education/Training Program; Visit Provider Advanced Practice Midwife
DX: Z34.91 Encounter for supervision of normal pregnancy, unspecified, first trimester (principal)
CPT/HCPCS: 36415; 80053; 81220; 81222; 81329; 86787; 86803; 86850; 86900; 86901; 87340; 87389; 83036; 84439; 84443; 85025; 86762; 86780

== ENCOUNTER 2025-08-03 16:56 | Outpatient (REF) | payer OTHER, SELFPAY ==
[2025-08-06 11:55] LABS: Chlamydia Result Negative (Negative); GC Result Negative (Negative)
== END 2025-08-03 16:57 | disposition home or self-care (01) ==
LOC: LBN 16:56
PROVIDERS: PCP Student in an Organized Health Care Education/Training Program; Visit Provider Advanced Practice Midwife
DX: Z34.91 Encounter for supervision of normal pregnancy, unspecified, first trimester (principal)
CPT/HCPCS: 87491; 87591; 82565; 84156; 87086

== ENCOUNTER 2025-08-31 12:55 | Outpatient (CLI) | payer OTHER, SELFPAY ==
[2025-08-31 15:54] LABS: TSH 1.60 uIU/mL (0.55-4.78)
== END 2025-08-31 12:56 ==
LOC: LBO 09-03 12:56
PROVIDERS: PCP Student in an Organized Health Care Education/Training Program; Visit Provider Advanced Practice Midwife
DX: Z34.92 Encounter for supervision of normal pregnancy, unspecified, second trimester (principal); E03.9 Hypothyroidism, unspecified; Z3A.15 15 weeks gestation of pregnancy
CPT/HCPCS: 36415; 84443